=== PATIENT | female | born 1965 | race Caucasian/White ===

== ENCOUNTER 2018-01-20 11:28 | Emergency (ER) | payer SELFPAY ==
--- NOTE | 2018-01-20 12:58 | ER Document Report ---
ED Medical Screen (RME) - General Chief Complaint: Fainting Stated Complaint: NOT TAKING MEDS Time Seen by Provider: 01/20/18 12:40 Notes: Patient is a 52-year-old female that presents to the emergency department for chief complaint of multiple syncopal episodes, diabetic and unable to obtain insulin due to financial situation. ROS: GENERAL: Denies fever or chills CV: Denies chest pain PHYSICAL EXAMINATION: Vital signs reviewed. GENERAL: Well-appearing, well-nourished and in no acute distress. HEAD: Atraumatic, normocephalic. EYES: Pupils equal round extraocular movements intact, conjunctiva are normal. ENT: Nares patent NECK: Normal range of motion CV: Heart regular rate and rhythm LUNGS: No respiratory distress Musculoskeletal: Normal range of motion NEUROLOGICAL: Normal speech PSYCH: Normal mood, normal affect. MDM: Patient seen and examined for rapid initial assessment. Vital signs reviewed. A comprehensive ED assessment and evaluation of the patient, analysis of test results and completion of the medical decision making process will be conducted by additional ED providers. *Note is created using voice recognition software and may contain spelling, syntax or grammatical errors. TRAVEL OUTSIDE OF THE [place] IN LAST 30 DAYS: No - Related Data Allergies/Adverse Reactions: alendronate sodium Allergy (Verified 01/20/18 12:49) Penicillins Allergy (Verified 01/20/18 12:49) pentazocine Allergy (Verified 01/20/18 12:49) risedronate sodium Allergy (Verified 01/20/18 12:49) Past Medical History - Social History Chew tobacco use (# tins/day): No Frequency of alcohol use: None Drug Abuse: None Endocrine Medical History: Reports: Hx Diabetes Mellitus Type 2 - controlled Renal/ Medical History: Denies: Hx Peritoneal Dialysis Malignancy Medical History: Reports: Hx Cervical Cancer Musculoskeltal Medical History: Reports Hx Arthritis Skin Medical History: Reports Hx Cellulitis Psychiatric Medical History: Reports: Hx Dementia Past Surgical History: Reports: Hx Hysterectomy, Hx Orthopedic Surgery - back/ hip plate Physical Exam - Vital signs Vitals: Temp Pulse Resp BP Pulse Ox 98.5 F 108 H 16 129/86 H 100 01/20/18 11:51 01/20/18 11:51 01/20/18 11:51 01/20/18 11:51 01/20/18 11:51 Course - Vital Signs Vital signs: Temp Pulse Resp BP Pulse Ox 98.5 F 108 H 16 129/86 H 100 01/20/18 11:51 01/20/18 11:51 01/20/18 11:51 01/20/18 11:51 01/20/18 11:51
[2018-01-20] MEDS ORDERED: NORMAL SALINE 1000 ML 1,000 ML IV ONE (13:01)
[2018-01-20 14:04] LABS: VENOUS BLOOD BASE EXCESS 2.8 mmol/L; VENOUS BLOOD HCO3 31.8 mmol/L (20-32); VENOUS BLOOD PH 7.28 (7.30-7.42)
[2018-01-20 14:05] LABS: APPEARANCE,URINE SLIGHTLY-CLOUDY; BILIRUBIN,URINE NEGATIVE (NEGATIVE); COLOR,URINE YELLOW; GLUCOSE, URINE 150 mg/dL (NEGATIVE); KETONES,URINE NEGATIVE (NEGATIVE); LEUKOCYTE ESTERASE,URINE NEGATIVE (NEGATIVE); NITRITE,URINE NEGATIVE (NEGATIVE); PROTEIN,URINE NEGATIVE (NEGATIVE); URINE SPECIFIC GRAVITY 1.021
[2018-01-20 14:07] LABS: ABSOLUTE EOSINOPHILS # (AUTO) 0.1 10^3/uL (0.0-0.6); ABSOLUTE LYMPHOCYTES (AUTO) 1.1 10^3/uL (0.5-4.7); ABSOLUTE MONOCYTES (AUTO) 0.3 10^3/uL (0.1-1.4); ABSOLUTE NEUT (AUTO) 2.4 10^3/uL (1.7-8.2); BASOPHILS % (AUTO) 0.7 % (0-2); EOSINOPHILS % (AUTO) 2.5 % (0-6); HEMATOCRIT 44.3 % (36.0-47.0); LYMPHOCYTES % (AUTO) 27.9 % (13-45); MEAN CORPUSCULAR HEMOGLOBIN 28.8 pg (27.0-33.4); MEAN CORPUSCULAR HGB CONC 33.9 g/dL (32.0-36.0); MEAN CORPUSCULAR VOLUME 85 fl (80-97); MONOCYTES % (AUTO) 6.8 % (3-13); PLATELET COUNT 208 10^3/uL (150-450); RED BLOOD COUNT 5.21 10^6/uL (3.72-5.28); RED CELL DISTRIBUTION WIDTH 13.8 % (11.5-14.0); SEGMENTED NEUTROPHILS % (AUTO) 62.1 % (42-78); TOTAL CELLS COUNTED % (AUTO) 100 %; WHITE BLOOD COUNT 3.8 10^3/uL (4.0-10.5)
[2018-01-20 14:24] LABS: ALANINE AMINOTRANSFERASE 23 U/L (9-52); ALBUMIN 4.5 g/dL (3.5-5.0); ALKALINE PHOSPHATASE 137 U/L (38-126); ANION GAP 12 (5-19); ASPARTATE AMINO TRANSFERASE 30 U/L (14-36); BILIRUBIN,DIRECT 0.3 mg/dL (0.0-0.4); BILIRUBIN,TOTAL 0.5 mg/dL (0.2-1.3); BLOOD UREA NITROGEN 18 mg/dL (7-20); CALCIUM 9.5 mg/dL (8.4-10.2); CARBON DIOXIDE 30 mmol/L (22-30); CHLORIDE 101 mmol/L (98-107); CREATINE KINASE 123 U/L (30-135); GLUCOSE 117 mg/dL (75-110); POTASSIUM 3.7 mmol/L (3.6-5.0); SODIUM 143.2 mmol/L (137-145); TOTAL PROTEIN 7.6 g/dL (6.3-8.2)
--- NOTE | 2018-01-20 14:37 | RADIOLOGY REPORT (SQ) ---
EXAM DESCRIPTION: CHEST 2 VIEWS COMPLETED DATE/TIME: 01/20/2018 2:16 pm REASON FOR STUDY: syncope COMPARISON: None. EXAM PARAMETERS: NUMBER OF VIEWS: two views TECHNIQUE: Digital Frontal and Lateral radiographic views of the chest acquired. RADIATION DOSE: NA LIMITATIONS: none FINDINGS: LUNGS AND PLEURA: No opacities, masses or pneumothorax. No pleural effusion. MEDIASTINUM AND HILAR STRUCTURES: No masses or contour abnormalities. HEART AND VASCULAR STRUCTURES: Heart normal size. No evidence for failure. BONES: No acute findings. HARDWARE: None in the chest. OTHER: There is considerable gaseous distention of the stomach in the: . IMPRESSION: NO ACUTE RADIOGRAPHIC FINDING IN THE CHEST. TECHNICAL DOCUMENTATION: JOB ID: [id number] [employer]- All Rights Reserved Reading location - IP/workstation name: [email or web address]
[2018-01-20 14:38] LABS: VENOUS BLOOD PCO2 69.3 mmHg (35-63)
--- NOTE | 2018-01-20 15:52 | RADIOLOGY REPORT (SQ) ---
EXAM DESCRIPTION: CT HEAD WITHOUT COMPLETED DATE/TIME: 01/20/2018 3:38 pm REASON FOR STUDY: fall, head injury COMPARISON: None. TECHNIQUE: Axial images acquired through the brain without intravenous contrast. Images reviewed wi th bone, brain and subdural windows. Additional sagittal and coronal reconstructions were generated. Images stored on PACS. All CT scanners at this facility use dose modulation, iterative reconstruction, and/or weight based d osing when appropriate to reduce radiation dose to as low as reasonably achievable (ALARA). [facility]: Dose Right [facility]: CareDose [facility]: Dose Right [facility]: Teradose 4D [facility]: Smart Shweeb RADIATION DOSE: CT Rad equipment meets quality standard of care and radiation dose reduction techniq ues were employed. CTDIvol: 53.2 mGy. DLP: 1017 mGy-cm. mGy. LIMITATIONS: None. FINDINGS: VENTRICLES: Normal size and contour. CEREBRUM: No masses. No hemorrhage. No midline shift. No evidence for acute infarction. Normal gra y/white matter differentiation. No areas of low density in the white matter. CEREBELLUM: No masses. No hemorrhage. No alteration of density. No evidence for acute infarction. EXTRAAXIAL SPACES: No fluid collections. No masses. ORBITS AND GLOBE: No intra- or extraconal masses. Normal contour of globe without masses. CALVARIUM: No fracture. PARANASAL SINUSES: No fluid or mucosal thickening. SOFT TISSUES: No mass or hematoma. OTHER: No other significant finding. IMPRESSION: NORMAL BRAIN CT WITHOUT CONTRAST. EVIDENCE OF ACUTE STROKE: NO. COMMENT: Quality ID # [id number]: Final reports with documentation of one or more dose reduction techniques (e.g., Automated exposure control, adjustment of the mA and/or kV according to patient size, use of iterative reconstruction technique) TECHNICAL DOCUMENTATION: JOB ID: [id number] [employer]- All Rights Reserved Reading location - IP/workstation name: [email or web address]
--- NOTE | 2018-01-20 15:54 | ER Document Report ---
ED General - General Chief Complaint: Fainting Stated Complaint: NOT TAKING MEDS Time Seen by Provider: 01/20/18 12:40 Notes: 52-year-old female, history of overdose with hypoxic brain injury to the emergency department with family member for evaluation of "passing out and not taking her meds". History of diabetes. History of dementia. Reportedly living in a tent behind [email or web address]. Has been seen by Adult Protective Services. 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 Family member states that they live in a tent together and she takes care of her. They are here wanting to see if she can be "admitted to the hospital to get checked out". patient services clerk has seen patient in the emergency department as well. Some of this information was provided by social media marketing specialist. TRAVEL OUTSIDE OF THE [place] IN LAST 30 DAYS: No - HPI Onset: Yesterday Onset/Duration: Gradual, Intermittent Quality of pain: No pain Severity: Mild Pain Level: 0 Associated symptoms: Weakness, Other - Passing out - Related Data Allergies/Adverse Reactions: alendronate sodium Allergy (Verified 01/20/18 12:49) Penicillins Allergy (Verified 01/20/18 12:49) pentazocine Allergy (Verified 01/20/18 12:49) risedronate sodium Allergy (Verified 01/20/18 12:49) Past Medical History - General Information source: Patient, Relative, [facility] Records - Social History Smoking Status: Never Smoker Chew tobacco use (# tins/day): No Frequency of alcohol use: None Drug Abuse: None Lives with: Homeless Family History: CAD, CVA, DM, Hyperlipidemia, Hypertension, Malignancy Patient has suicidal ideation: No Patient has homicidal ideation: No Endocrine Medical History: Reports: Hx Diabetes Mellitus Type 2 - controlled Renal/ Medical History: Denies: Hx Peritoneal Dialysis Malignancy Medical History: Reports: Hx Cervical Cancer Musculoskeletal Medical History: Reports Hx Arthritis Skin Medical History: Reports Hx Cellulitis Psychiatric Medical History: Reports: Hx Dementia Past Surgical History: Reports: Hx Hysterectomy, Hx Orthopedic Surgery - back/ hip plate Review of Systems - Review of Systems Notes: Constitutional: denies: Chills, Diaphoresis, Fever, Malaise, Weakness EENT: denies: Eye discharge, Blurred vision, Tearing, Double vision, Nose congestion, Nose discharge, Throat swelling, Mouth pain Cardiovascular: denies: Palpitations, Heart racing, Orthopnea, Dyspnea, Chest pain Respiratory: denies: Cough, Hurts to breathe, Wheezing, Shortness of breath Gastrointestinal: denies: Abdominal pain, Diarrhea, Nausea, Vomiting, Black stools, bright red blood in stool Genitourinary: denies: Burning, Dysuria, Discharge, Frequency, Flank pain, Hematuria Musculoskeletal: denies: Joint pain, Joint swelling, Muscle pain, Muscle stiffness, back pain Hematologic/Lymphatic: denies: Anemia, Easy bleeding, Easy bruising, Blood clots Neurological/Psychological: denies: Confusion, Dementia, Depression, Loss of consciousness Skin: No lesions, no masses, no skin breakdown, no abscesses Physical Exam - Vital signs Vitals: Temp Pulse Resp BP Pulse Ox 98.5 F 108 H 16 129/86 H 100 01/20/18 11:51 01/20/18 11:51 01/20/18 11:51 01/20/18 11:51 01/20/18 11:51 Interpretation: Normal - General General appearance: Appears well, Alert - HEENT Head: Normocephalic, Atraumatic, Other - Small scratch on the left eyebrow area. Eyes: Normal Pupils: PERRL - Respiratory Respiratory status: No respiratory distress Chest status: Nontender Breath sounds: Normal Chest palpation: Normal - Cardiovascular Rhythm: Regular Heart sounds: Normal auscultation Murmur: No - Abdominal Inspection: Normal Distension: No distension Bowel sounds: Normal Tenderness: Nontender Organomegaly: No organomegaly - Back Back: Normal, Nontender - Extremities General upper extremity: Normal inspection, Nontender, Normal color, Normal ROM , Normal temperature General lower extremity: Normal inspection, Nontender, Normal color, Normal ROM , Normal temperature, Normal weight bearing. No: Geovany's sign - Neurological Neuro grossly intact: Yes Cognition: Confused [place] Coma Scale Eye Opening: Spontaneous [place] Coma Scale Motor: Obeys Commands Speech: Normal Motor strength normal: LUE, RUE, LLE, RLE Sensory: Normal - Psychological Associated symptoms: Normal affect, Normal mood - Skin Skin Temperature: Warm Skin Moisture: Dry Skin Color: Normal, Other - Abrasion on left eyebrow, abrasion on right mercedes Course - Re-evaluation Re-evalutation: 01/20/18 16:18 At this time we will do basic workup on her. Find nothing significant on physical exam. There is some obvious social issues involved. Apparently Adult Protective Services is aware of this patient. We will continue to follow recommendations of mental health as well 01/20/18 17:47 Laboratory 01/20/18 01/20/18 01/20/18 13:25 13:31 13:31 WBC 3.8 L RBC 5.21 Hgb 15.0 Hct 44.3 MCV 85 MCH 28.8 MCHC 33.9 RDW 13.8 Plt Count 208 Seg Neutrophils % 62.1 Lymphocytes % 27.9 Monocytes % 6.8 Eosinophils % 2.5 Basophils % 0.7 Absolute Neutrophils 2.4 Absolute Lymphocytes 1.1 Absolute Monocytes 0.3 Absolute Eosinophils 0.1 Absolute Basophils 0.0 Carbonic Acid HCO3/H2CO3 Ratio ABG pH ABG pCO2 ABG pO2 ABG HCO3 ABG Total CO2 ABG O2 Saturation ABG Base Excess VBG pH VBG pCO2 VBG HCO3 VBG Base Excess FiO2 Sodium 143.2 Potassium 3.7 Chloride 101 Carbon Dioxide 30 Anion Gap 12 BUN 18 Creatinine 0.70 Est GFR ( Amer) > 60 Est GFR (Non-Af Amer) > 60 Glucose 117 H Calcium 9.5 Total Bilirubin 0.5 Direct Bilirubin 0.3 Neonat Total Bilirubin Not Reportable Neonat Direct Bilirubin Not Reportable Neonat Indirect Bili Not Reportable AST 30 ALT 23 Alkaline Phosphatase 137 H Creatine Kinase 123 Troponin I Total Protein 7.6 Albumin 4.5 Urine Color YELLOW Urine Appearance SLIGHTLY-CLOUDY Urine pH 5.0 Ur Specific [place] 1.021 Urine Protein NEGATIVE Urine Glucose (UA) 150 H Urine Ketones NEGATIVE Urine Blood NEGATIVE Urine Nitrite NEGATIVE Urine Bilirubin NEGATIVE Urine Urobilinogen 4.0 H Ur Leukocyte Esterase NEGATIVE Urine WBC (Auto) 3 Urine RBC (Auto) 1 Squamous Epi Cells Auto 3 Urine Mucus (Auto) OCC Urine Ascorbic Acid NEGATIVE Urine Opiates Screen Urine Methadone Screen Ur Barbiturates Screen Ur Phencyclidine Scrn Ur Amphetamines Screen U Benzodiazepines Scrn Urine Cocaine Screen U Marijuana (THC) Screen 01/20/18 01/20/18 01/20/18 13:31 13:31 13:55 WBC RBC Hgb Hct MCV MCH MCHC RDW Plt Count Seg Neutrophils % Lymphocytes % Monocytes % Eosinophils % Basophils % Absolute Neutrophils Absolute Lymphocytes Absolute Monocytes Absolute Eosinophils Absolute Basophils Carbonic Acid HCO3/H2CO3 Ratio ABG pH ABG pCO2 ABG pO2 ABG HCO3 ABG Total CO2 ABG O2 Saturation ABG Base Excess VBG pH 7.28 L VBG pCO2 69.3 H* VBG HCO3 31.8 VBG Base Excess 2.8 FiO2 Sodium Potassium Chloride Carbon Dioxide Anion Gap BUN Creatinine Est GFR ( Amer) Est GFR (Non-Af Amer) Glucose Calcium Total Bilirubin Direct Bilirubin Neonat Total Bilirubin Neonat Direct Bilirubin Neonat Indirect Bili AST ALT Alkaline Phosphatase Creatine Kinase Troponin I < 0.012 Total Protein Albumin Urine Color Urine Appearance Urine pH Ur Specific [place] Urine Protein Urine Glucose (UA) Urine Ketones Urine Blood Urine Nitrite Urine Bilirubin Urine Urobilinogen Ur Leukocyte Esterase Urine WBC (Auto) Urine RBC (Auto) Squamous Epi Cells Auto Urine Mucus (Auto) Urine Ascorbic Acid Urine Opiates Screen NEGATIVE Urine Methadone Screen NEGATIVE Ur Barbiturates Screen NEGATIVE Ur Phencyclidine Scrn NEGATIVE Ur Amphetamines Screen NEGATIVE U Benzodiazepines Scrn NEGATIVE Urine Cocaine Screen NEGATIVE U Marijuana (THC) Screen NEGATIVE 01/20/18 15:28 WBC RBC Hgb Hct MCV MCH MCHC RDW Plt Count Seg Neutrophils % Lymphocytes % Monocytes % Eosinophils % Basophils % Absolute Neutrophils Absolute Lymphocytes Absolute Monocytes Absolute Eosinophils Absolute Basophils Carbonic Acid 1.32 HCO3/H2CO3 Ratio 20:1 ABG pH 7.40 ABG pCO2 43.7 ABG pO2 74.8 L ABG HCO3 26.4 H ABG Total CO2 27.7 H ABG O2 Saturation 95.0 ABG Base Excess 1.3 VBG pH VBG pCO2 VBG HCO3 VBG Base Excess FiO2 ROOMAIR Sodium Potassium Chloride Carbon Dioxide Anion Gap BUN Creatinine Est GFR ( Amer) Est GFR (Non-Af Amer) Glucose Calcium Total Bilirubin Direct Bilirubin Neonat Total Bilirubin Neonat Direct Bilirubin Neonat Indirect Bili AST ALT Alkaline Phosphatase Creatine Kinase Troponin I Total Protein Albumin Urine Color Urine Appearance Urine pH Ur Specific [place] Urine Protein Urine Glucose (UA) Urine Ketones Urine Blood Urine Nitrite Urine Bilirubin Urine Urobilinogen Ur Leukocyte Esterase Urine WBC (Auto) Urine RBC (Auto) Squamous Epi Cells Auto Urine Mucus (Auto) Urine Ascorbic Acid Urine Opiates Screen Urine Methadone Screen Ur Barbiturates Screen Ur Phencyclidine Scrn Ur Amphetamines Screen U Benzodiazepines Scrn Urine Cocaine Screen U Marijuana (THC) Screen Chest X-Ray 01/20/18 12:59 IMPRESSION: NO ACUTE RADIOGRAPHIC FINDING IN THE CHEST. Head CT 01/20/18 15:29 IMPRESSION: NORMAL BRAIN CT WITHOUT CONTRAST. EVIDENCE OF ACUTE STROKE: NO. Labs are normal, imaging studies unremarkable. At this time find no convincing evidence we need to admit the patient. Will discharge at this time in stable condition. - Vital Signs Vital signs: Temp Pulse Resp BP Pulse Ox 98.5 F 108 H 16 129/86 H 100 01/20/18 11:51 01/20/18 11:51 01/20/18 11:51 01/20/18 11:51 01/20/18 11:51 - Laboratory Result Diagrams: 01/20/18 13:31 01/20/18 13:31 Laboratory results interpreted by me: 01/20/18 01/20/18 01/20/18 13:25 13:31 13:31 WBC 3.8 L ABG pO2 ABG HCO3 ABG Total CO2 VBG pH VBG pCO2 Glucose 117 H Alkaline Phosphatase 137 H Urine Glucose (UA) 150 H Urine Urobilinogen 4.0 H 01/20/18 01/20/18 13:31 15:28 WBC ABG pO2 74.8 L ABG HCO3 26.4 H ABG Total CO2 27.7 H VBG pH 7.28 L VBG pCO2 69.3 H* Glucose Alkaline Phosphatase Urine Glucose (UA) Urine Urobilinogen - EKG Interpretation by [place] EKG shows normal: Sinus rhythm, [place], Intervals, QRS Complexes, ST-T Waves Discharge - Discharge Clinical Impression: Homeless single person, Well adult exam Condition: Good Disposition: HOME, SELF-CARE Instructions: Diabetes ([facility]), Normal Exam and Workup ([facility]) Referrals: [facility] [Provider Group] - 01/21/18 8:00 am
[2018-01-20 16:41] LABS: ARTERIAL BLOOD BASE EXCESS 1.3 mmol/L; ARTERIAL BLOOD H2CO3 1.32 mmol/L (1.05-1.35); ARTERIAL BLOOD HCO3 26.4 mmol/L (20-24); ARTERIAL BLOOD PCO2 43.7 mmHg (35-45); ARTERIAL BLOOD PO2 74.8 mmHg (80-100); ARTERIAL BLOOD TOTAL CO2 27.7 mmol/L (21-25)
[2018-01-20 16:42] LABS: ARTERIAL BLOOD FIO2 ROOMAIR
[2018-01-20 16:57] LABS: URINE AMPHETAMINES SCREEN NEGATIVE; URINE BARBITURATES SCREEN NEGATIVE; URINE BENZODIAZEPINES SCREEN NEGATIVE; URINE COCAINE SCREEN NEGATIVE; URINE MARIJUANA (THC) SCREEN NEGATIVE; URINE METHADONE SCREEN NEGATIVE; URINE PHENCYCLIDINE SCREEN NEGATIVE
[2018-01-20 18:20] VITALS: BP 158/86
--- NOTE | 2018-01-20 19:26 | EKG REPORT ---
SEVERITY:- BORDERLINE ECG - SINUS RHYTHM BORDERLINE T ABNORMALITIES, INFERIOR LEADS : Confirmed by: Austin Gonzalez MD 20-Jan-2018 19:24:36
== END 2018-01-20 18:22 | disposition home or self-care (01) ==
LOC: ER 11:28
DX: Z71.1 Person with feared health complaint in whom no diagnosis is made (principal); Z59.0 Homelessness; E11.9 Type 2 diabetes mellitus without complications; F03.90 Unspecified dementia, unspecified severity, without behavioral disturbance, psychotic disturbance, mood disturbance, and anxiety
CPT/HCPCS: 93005; 99285; 96360; 36415; 82803 ×2; 82550; 85025; 80053; 81001; 84484; 80307; 71046; 70450; 93010; J7030

== ENCOUNTER 2018-02-10 12:05 | Inpatient (IN) | payer MEDICARE ==
[2018-02-10] MEDS ORDERED: NORMAL SALINE 1000 ML 1,000 ML IV ONE (12:20)
[2018-02-10] MEDS ORDERED: KETOROLAC TROMETHAMINE INJ/PF 30 MG/1 ML SDV IV ONE (12:24)
--- NOTE | 2018-02-10 12:24 | ER Document Report ---
ED General - General Stated Complaint: BLOOD IN URINE Time Seen by Provider: 02/10/18 12:12 TRAVEL OUTSIDE OF THE [place] IN LAST 30 DAYS: No - HPI Notes: Patient is a 52-year-old female that presents to the emergency department for chief complaint of blood in urine and syncope. She presents by EMS from a [facility]. History is limited because of her history of traumatic brain injury. Shoulder caregiver states she is at her baseline mental status. Patient told them today that she has had blood in her urine that has been increasing for the last week. She also complains of left flank pain that has been constant for the last week as well. She is not sure if she has ever had a kidney stone before. She states 1 week ago she was standing and walking and had a syncopal episode. She denied any injury and has felt fine since. She denied ever seeing anybody for evaluation after the syncopal episode and has not told any caregivers. Currently she has no complaints and states she feels normal. Past Medical History: Medic brain injury, diabetes Past Surgical History: Hysterectomy Social History: Denies drugs alcohol and tobacco Family History: Reviewed and noncontributory for presenting illness Allergies: Reviewed, see documented allergy list. REVIEW OF SYSTEMS: CONSTITUTIONAL : No fever No chills No diaphoresis No recent illness EENT: No vision changes No congestion No sore throat CARDIOVASCULAR: No chest pain No palpitations Syncope RESPIRATORY: No shortness of breath No cough No difficulty breathing GASTROINTESTINAL: No abdominal pain No nausea No vomiting No diarrhea GENITOURINARY: No dysuria No hematuria No difficulty urinating Hematuria MUSCULOSKELETAL: Left flank pain No leg pain No arm pain SKIN: No rashes No lesions LYMPHATIC: No swollen, enlarged glands. NEUROLOGICAL: No lightheadedness No headache No weakness No paresthesias PSYCHIATRIC: No anxiety No depression PHYSICAL EXAMINATION: Vital signs reviewed, nursing noted reviewed. GENERAL: Well-appearing, well-nourished and in no acute distress. HEAD: Atraumatic, normocephalic. EYES: Eyes appear normal, extraocular movements intact, sclera anicteric, conjunctiva are normal. ENT: nares patent, oropharynx clear without exudates. Moist mucous membranes. NECK: Normal range of motion, supple without lymphadenopathy LUNGS: Breath sounds clear to auscultation bilaterally and equal. No wheezes rales or rhonchi. HEART: Tachycardic and rhythm without murmurs ABDOMEN: Soft, nontender, normoactive bowel sounds. No rebound, guarding, or rigidity. No masses appreciated. Left CVA tenderness EXTREMITIES: Nontender, good range of motion, no pitting or edema. NEUROLOGICAL: No focal neurological deficits. Moves all extremities spontaneously Motor and sensory grossly intact on exam. PSYCH: Normal mood, normal affect. SKIN: Warm, Dry, normal turgor, no rashes or lesions noted on exposed skin - Related Data Allergies/Adverse Reactions: alendronate sodium Allergy (Verified 01/20/18 12:49) Penicillins Allergy (Verified 01/20/18 12:49) pentazocine Allergy (Verified 01/20/18 12:49) risedronate sodium Allergy (Verified 01/20/18 12:49) Past Medical History - Social History Smoking Status: Never Smoker Family History: CAD, CVA, DM, Hyperlipidemia, Hypertension, Malignancy Endocrine Medical History: Reports: Hx Diabetes Mellitus Type 2 - controlled Renal/ Medical History: Denies: Hx Peritoneal Dialysis Malignancy Medical History: Reports: Hx Cervical Cancer Musculoskeletal Medical History: Reports Hx Arthritis Skin Medical History: Reports Hx Cellulitis Psychiatric Medical History: Reports: Hx Dementia Past Surgical History: Reports: Hx Hysterectomy, Hx Orthopedic Surgery - back/ hip plate Review of Systems - Review of Systems Notes: Dictated Physical Exam - Vital signs Vitals: Resp Pulse Ox 15 98 02/10/18 12:39 02/10/18 12:39 - Notes Notes: Dictated Course - Re-evaluation Re-evalutation: 02/10/18 14:39 Vitals reviewed. Patient was tachycardic at presentation and given IV hydration. She was complaining of hematuria however there is no blood or infection on urinalysis. CT scan of the abdomen was obtained to evaluate for possible ureterolithiasis because of her left flank pain. There is no acute kidney stone however CT showed possible small bowel obstruction versus ileus. Contrasted CT study was ordered to further evaluate for small bowel obstruction versus ileus. Repeat abdominal exam is still soft and nontender with no peritoneal signs. Patient is not vomiting or complaining of abdominal pain currently. Lab work shows an elevated lactic acid likely secondary to her hyperglycemia and dehydration. She has no leukocytosis. UA is negative for infection and chest x-ray shows no pneumonia. I do not suspect sepsis and she has no current source of infection. Patient was aggressively hydrated with improvement of her heart rate. Because of her history of traumatic brain injury it is difficult to obtain sufficient history. She will be admitted to the hospital for continued hydration and monitoring of her elevated lactate. Case discussed with admitting physician Dr. Zamudio. Patient stable at time of admission. Laboratory 02/10/18 02/10/18 02/10/18 12:20 12:20 12:20 WBC 6.3 RBC 4.13 Hgb 12.2 Hct 35.0 L MCV 85 MCH 29.6 MCHC 35.0 RDW 14.1 H Plt Count 188 Seg Neutrophils % 63.5 Lymphocytes % 22.2 Monocytes % 11.0 Eosinophils % 2.5 Basophils % 0.8 Absolute Neutrophils 4.0 Absolute Lymphocytes 1.4 Absolute Monocytes 0.7 Absolute Eosinophils 0.2 Absolute Basophils 0.0 VBG pH VBG pCO2 VBG HCO3 VBG Base Excess Sodium 138.0 Potassium 4.1 Chloride 101 Carbon Dioxide 29 Anion Gap 8 BUN 14 Creatinine 0.76 Est GFR ( Amer) > 60 Est GFR (Non-Af Amer) > 60 Glucose 238 H Lactic Acid Calcium 9.2 Troponin I < 0.012 Urine Color Urine Appearance Urine pH Ur Specific [place] Urine Protein Urine Glucose (UA) Urine Ketones Urine Blood Urine Nitrite Urine Bilirubin Urine Urobilinogen Ur Leukocyte Esterase Urine RBC (Auto) Squamous Epi Cells Auto Urine Mucus (Auto) Urine Ascorbic Acid 02/10/18 02/10/18 02/10/18 12:20 12:20 12:30 WBC RBC Hgb Hct MCV MCH MCHC RDW Plt Count Seg Neutrophils % Lymphocytes % Monocytes % Eosinophils % Basophils % Absolute Neutrophils Absolute Lymphocytes Absolute Monocytes Absolute Eosinophils Absolute Basophils VBG pH 7.38 VBG pCO2 40.7 VBG HCO3 23.4 VBG Base Excess -1.6 Sodium Potassium Chloride Carbon Dioxide Anion Gap BUN Creatinine Est GFR ( Amer) Est GFR (Non-Af Amer) Glucose Lactic Acid 3.0 H Calcium Troponin I Urine Color STRAW Urine Appearance CLEAR Urine pH 6.0 Ur Specific [place] 1.000 Urine Protein NEGATIVE Urine Glucose (UA) >=500 H Urine Ketones NEGATIVE Urine Blood NEGATIVE Urine Nitrite NEGATIVE Urine Bilirubin NEGATIVE Urine Urobilinogen NEGATIVE Ur Leukocyte Esterase NEGATIVE Urine RBC (Auto) 0 Squamous Epi Cells Auto <1 Urine Mucus (Auto) RARE Urine Ascorbic Acid NEGATIVE Chest X-Ray 02/10/18 12:18 IMPRESSION: NO ACUTE RADIOGRAPHIC FINDING IN THE CHEST. Abdomen/Pelvis CT 02/10/18 12:23 IMPRESSION: Gastric distention. Ileus or partial small bowel obstruction. - Vital Signs Vital signs: Temp Pulse Resp BP Pulse Ox 15 98 02/10/18 12:39 02/10/18 12:39 - Laboratory Result Diagrams: 02/10/18 12:20 02/10/18 12:20 Laboratory results interpreted by me: 02/10/18 02/10/18 02/10/18 12:20 12:20 12:20 Hct 35.0 L RDW 14.1 H Glucose 238 H Lactic Acid 3.0 H Urine Glucose (UA) 02/10/18 12:30 Hct RDW Glucose Lactic Acid Urine Glucose (UA) >=500 H - EKG Interpretation by Me Additional EKG results interpreted by me: 02/10/18 12:46 1243: Sinus tachycardia, normal axis, rate 104, no ectopy, no ST elevation, hyperacute T waves V2 V3 with no other significant change compared to 01/20/18 Discharge - Discharge Clinical Impression: Left flank pain, Hyperglycemia, Elevated lactic acid level, Dehydration, Ileus Condition: Stable Disposition: ADMITTED OBSERVATION Admitting Provider: Hospitalist Unit Admitted: Medical Floor
[2018-02-10 12:40] LABS: ABSOLUTE EOSINOPHILS # (AUTO) 0.2 10^3/uL (0.0-0.6); ABSOLUTE LYMPHOCYTES (AUTO) 1.4 10^3/uL (0.5-4.7); ABSOLUTE MONOCYTES (AUTO) 0.7 10^3/uL (0.1-1.4); BASOPHILS % (AUTO) 0.8 % (0-2); EOSINOPHILS % (AUTO) 2.5 % (0-6); HEMOGLOBIN 12.2 g/dL (12.0-15.5); LYMPHOCYTES % (AUTO) 22.2 % (13-45); MEAN CORPUSCULAR HEMOGLOBIN 29.6 pg (27.0-33.4); MEAN CORPUSCULAR VOLUME 85 fl (80-97); PLATELET COUNT 188 10^3/uL (150-450); RED BLOOD COUNT 4.13 10^6/uL (3.72-5.28); RED CELL DISTRIBUTION WIDTH 14.1 % (11.5-14.0); SEGMENTED NEUTROPHILS % (AUTO) 63.5 % (42-78); TOTAL CELLS COUNTED % (AUTO) 100 %; WHITE BLOOD COUNT 6.3 10^3/uL (4.0-10.5)
[2018-02-10 12:41] LABS: VENOUS BLOOD BASE EXCESS -1.6 mmol/L; VENOUS BLOOD HCO3 23.4 mmol/L (20-32); VENOUS BLOOD PCO2 40.7 mmHg (35-63); VENOUS BLOOD PH 7.38 (7.30-7.42)
[2018-02-10 12:57] LABS: ANION GAP 8 (5-19); BLOOD UREA NITROGEN 14 mg/dL (7-20); CALCIUM 9.2 mg/dL (8.4-10.2); CARBON DIOXIDE 29 mmol/L (22-30); CHLORIDE 101 mmol/L (98-107); GLUCOSE 238 mg/dL (75-110); POTASSIUM 4.1 mmol/L (3.6-5.0)
[2018-02-10] MEDS ORDERED: NORMAL SALINE 1000 ML 1,000 ML IV PRN (12:57)
[2018-02-10 13:03] LABS: APPEARANCE,URINE CLEAR; BILIRUBIN,URINE NEGATIVE (NEGATIVE); COLOR,URINE STRAW; GLUCOSE, URINE >=500 mg/dL (NEGATIVE); KETONES,URINE NEGATIVE (NEGATIVE); LEUKOCYTE ESTERASE,URINE NEGATIVE (NEGATIVE); NITRITE,URINE NEGATIVE (NEGATIVE); PROTEIN,URINE NEGATIVE (NEGATIVE); UROBILINOGEN,URINE NEGATIVE mg/dL (<2.0)
--- NOTE | 2018-02-10 13:13 | RADIOLOGY REPORT (SQ) ---
EXAM DESCRIPTION: CT ABD/PELVIS NO ORAL OR IV COMPLETED DATE/TIME: 02/10/2018 1:02 pm REASON FOR STUDY: Left flank pain COMPARISON: None. TECHNIQUE: CT scan of the abdomen and pelvis performed without intravenous or oral contrast. Images reviewed with lung, soft tissue, and bone windows. Reconstructed coronal and sagittal MPR images revi ewed. All images stored on PACS. All CT scanners at this facility use dose modulation, iterative reconstruction, and/or weight based d osing when appropriate to reduce radiation dose to as low as reasonably achievable (ALARA). [facility]: Dose Right [facility]: CareDose [facility]: Dose Right [facility]: Teradose 4D [facility]: Promodity RADIATION DOSE: mGy. LIMITATIONS: Orthopedic hardware in the left hip. FINDINGS: LOWER CHEST: No significant findings. No nodules or infiltrates. NON-CONTRASTED LIVER, SPLEEN, ADRENALS: Evaluation limited by lack of IV contrast. No identified sign ificant masses. PANCREAS: No masses. No peripancreatic inflammatory changes. GALLBLADDER: Surgically absent. RIGHT KIDNEY AND URETER: No suspicious masses. Assessment limited by lack of IV contrast. No signif icant calcifications. No hydronephrosis or hydroureter. LEFT KIDNEY AND URETER: No suspicious masses. Assessment limited by lack of IV contrast. No signifi cant calcifications. No hydronephrosis or hydroureter. AORTA AND RETROPERITONEUM: No aneurysm. No retroperitoneal masses or adenopathy. BOWEL AND PERITONEAL CAVITY: Moderate gastric distention. Gas fluid levels in mildly dilated loops o f small bowel without clear transition point. Gas and fecal material in nondilated colon. No ascite s or free air. APPENDIX: Not visualized. PELVIS, BLADDER, AND ABDOMINAL WALL:No abnormal masses. No free fluid. Bladder normal. BONES: Osteopenia. No acute findings. OTHER: No other significant finding. IMPRESSION: Gastric distention. Ileus or partial small bowel obstruction. COMMENT: Quality ID # [id number]: Final reports with documentation of one or more dose reduction techniques (e.g., Automated exposure control, adjustment of the mA and/or kV according to patient size, use of iterative reconstruction technique) TECHNICAL DOCUMENTATION: JOB ID: [id number] [employer]- All Rights Reserved Reading location - IP/workstation name: [email or web address]
--- NOTE | 2018-02-10 13:28 | RADIOLOGY REPORT (SQ) ---
EXAM DESCRIPTION: CHEST SINGLE VIEW COMPLETED DATE/TIME: 02/10/2018 1:10 pm REASON FOR STUDY: cough COMPARISON: 01/20/2018 EXAM PARAMETERS: NUMBER OF VIEWS: One view. TECHNIQUE: Single frontal radiographic view of the chest acquired. RADIATION DOSE: NA LIMITATIONS: None. FINDINGS: LUNGS AND PLEURA: No opacities, masses or pneumothorax. No pleural effusion. MEDIASTINUM AND HILAR STRUCTURES: No masses. Contour normal. HEART AND VASCULAR STRUCTURES: Heart normal in size. Normal vasculature. BONES: No acute findings. HARDWARE: None in the chest. OTHER: No other significant finding. IMPRESSION: NO ACUTE RADIOGRAPHIC FINDING IN THE CHEST. TECHNICAL DOCUMENTATION: JOB ID: [id number] [employer]- All Rights Reserved Reading location - IP/workstation name: [email or web address]
[2018-02-10] MEDS ORDERED: DEXTROSE 50%-WATER 25 GM/50 ML DISP.SYRIN IV PRN ×2 (16:05)
[2018-02-10] MEDS ORDERED: ONDANSETRON HCL INJ/PF 4 MG/2 ML SDV IV PRN (16:05)
[2018-02-10] MEDS ORDERED: DEXTROSE 40% GEL 15 GM TUBE PO PRN ×2 (16:05)
[2018-02-10] MEDS ORDERED: IPRATROPIUM/ALBUTEROL 0.5-2.5 MG/3 ML AMPUL NEB PRN (16:05)
[2018-02-10] MEDS ORDERED: GLUCAGON,HUMAN RECOMB 1 MG INJ IM PRN (16:05)
[2018-02-10] MEDS ORDERED: OXYCODONE-ACETAMINOPHEN 5-325 MG TABLET PO PRN (16:05)
--- NOTE | 2018-02-10 17:02 | EKG REPORT ---
SEVERITY:- OTHERWISE NORMAL ECG - SINUS TACHYCARDIA : Confirmed by: Maria Eugenia Bloom MD 10-Feb-2018 17:01:19
--- NOTE | 2018-02-10 17:12 | RADIOLOGY REPORT (SQ) ---
EXAM DESCRIPTION: CT ABD/PELVIS WITH IV ORAL COMPLETED DATE/TIME: 02/10/2018 4:39 pm REASON FOR STUDY: bowel obstruction COMPARISON: CT abdomen and pelvis without contrast. 02/10/2018. TECHNIQUE: CT scan of the abdomen and pelvis performed using helical scanning technique with dynamic intravenous contrast injection. Oral contrast given. Images reviewed with lung, soft tissue, and b one windows. Reconstructed coronal and sagittal MPR images reviewed. Delayed images for evaluation of the urinary system also acquired. All images stored on PACS. All CT scanners at this facility use dose modulation, iterative reconstruction, and/or weight based d osing when appropriate to reduce radiation dose to as low as reasonably achievable (ALARA). [facility]: Dose Right [facility]: CareDose [facility]: Dose Right [facility]: Teradose 4D [facility]: Manymoon CONTRAST TYPE AND DOSE: contrast/concentration: Isovue 350.00 mg/ml; Total Contrast Delivered: 81.0 ml; Total Saline Delivered: 46.0 ml RENAL FUNCTION: Creatinine: 0.8. RADIATION DOSE: CT Rad equipment meets quality standard of care and radiation dose reduction techniq ues were employed. CTDIvol: 5.6 - 7.6 mGy. DLP: 742 mGy-cm.. LIMITATIONS: None. FINDINGS: LOWER CHEST: No abnormality. LIVER: Normal. SPLEEN: Normal. . PANCREAS: No masses. No significant calcifications. No adjacent inflammation or peripancreatic fluid collections. Pancreatic duct not dilated. GALLBLADDER: Status post cholecystectomy. Post cholecystectomy prominence of intrahepatic biliary du cts and common bile duct. ADRENAL GLANDS: No significant masses or asymmetry. RIGHT KIDNEY AND URETER: Cortical cyst lower pole right kidney. Cortical cyst upper pole right kidne y. . No hydronephrosis or hydroureter. LEFT KIDNEY ANd URETER: Cortical cyst noted. AORTA AND VESSELS: No aneurysm. No dissection. Renal arteries, SMA, celiac without stenosis. RETROPERITONEUM: No retroperitoneal adenopathy, hemorrhage or masses. BOWEL AND PERITONEAL CAVITY: Interval decrease of gastric distention. Postsurgical changes of GE ashkan ction which could represent changes of fundal plication. Gaseous distention of the right and transve rse colon. Contrast noted passing from distal small bowel into the cecum. Mildly prominent loops of small bowel without transition point. The findings could represent generalileus pattern APPENDIX: Normal. PELVIS: Uterus: Absent. Urinary bladder: No abnormality. ABDOMINAL WALL: No masses. No hernias. BONES: Lumbar spondylosis. Compression of L2. Compression of T11 and T12. Fusion of T7 and T8. OTHER: Surgical clips right hemipelvis. IMPRESSION: Mild dilatation of colon and small bowel which could represent a generalized ileus patte rn. Interval resolution of gastric distention noted prior study 02/10/2018. TECHNICAL DOCUMENTATION: JOB ID: [id number] Quality ID # [id number]: Final reports with documentation of one or more dose reduction techniques (e.g., Au tomated exposure control, adjustment of the mA and/or kV according to patient size, use of iterative reconstruction technique) 2010 [employer]- All Rights Reserved Reading location - IP/workstation name: [email or web address]
--- NOTE | 2018-02-10 19:13 | PDOC H&P ---
History of Present Illness Admission Date/PCP: 02/10/18 16:03 Patient complains of: Patient presents to emergency room with complaints of bloody urine and syncope History of Present Illness: DENICE TELLO is a 52 year old female Patient presents to emergency room with complaints of bloody urine and syncope. Please note history is obtained from the chart as patient is unable to provide any history. Patient apparently presents by EMS from a correction. Patient was evaluated in the ER and found to have a slightly elevated lactic acid level but repeat was actually normal after some hydration. A CT scan was done for unclear reason and this appears to show an ileus which is really the main reason why patient is been admitted at this time. To me she denies any abdominal pain nausea or vomiting but also because of a traumatic brain injury patient is really unable to provide any concise details. Past Medical History Endocrine Medical History: Reports: Diabetes Mellitus Type 2 - controlled Malignancy Medical History: Reports: Cervical Cancer Musculoskeltal Medical History: Reports: Arthritis Psychiatric Medical History: Reports: Dementia Past Surgical History Past Surgical History: Reports: Hysterectomy, Orthopedic Surgery - back/hip plate Social History Smoking Status: Never Smoker - Advance Directive Resuscitation Status: Full Code - Presumed Family History Family History: CAD, CVA, DM, Hyperlipidemia, Hypertension, Malignancy Parental Family History Reviewed: No - Unavailable Children Family History Reviewed: Unknown Sibling(s) Family History Reviewed.: Unknown Medication/Allergy Home Medications: No Home Medications 11/23/15 Allergies/Adverse Reactions: alendronate sodium Allergy (Verified 01/20/18 12:49) Penicillins Allergy (Verified 01/20/18 12:49) pentazocine Allergy (Verified 01/20/18 12:49) risedronate sodium Allergy (Verified 01/20/18 12:49) Review of Systems ROS unobtainable: Due to mental status Physical Exam Vital Signs: Temp Pulse Resp BP Pulse Ox 15 98 02/10/18 12:39 02/10/18 12:39 General appearance: PRESENT: no acute distress Head exam: PRESENT: atraumatic, normocephalic Eye exam: PRESENT: conjunctiva pink, EOMI, PERRLA. ABSENT: scleral icterus Ear exam: PRESENT: normal external ear exam Mouth exam: PRESENT: moist, tongue midline Neck exam: ABSENT: carotid bruit, JVD, lymphadenopathy, thyromegaly Respiratory exam: PRESENT: clear to auscultation jamee. ABSENT: rales, rhonchi, wheezes Cardiovascular exam: PRESENT: RRR. ABSENT: diastolic murmur, rubs, systolic murmur Pulses: PRESENT: normal dorsalis pedis pul Vascular exam: PRESENT: normal capillary refill GI/Abdominal exam: PRESENT: normal bowel sounds, soft. ABSENT: distended, guarding, mass, organolmegaly, rebound, tenderness Rectal exam: PRESENT: deferred Extremities exam: PRESENT: full ROM. ABSENT: calf tenderness, clubbing, pedal edema Neurological exam: PRESENT: alert, awake. ABSENT: motor sensory deficit Psychiatric exam: PRESENT: flat affect, normal mood. ABSENT: homicidal ideation , suicidal ideation Skin exam: PRESENT: dry, intact, warm. ABSENT: cyanosis, rash Results Laboratory Results: 02/10/18 12:20 02/10/18 12:20 MCV 85 fl (80-97) 02/10/18 12:20 MCH 29.6 pg (27.0-33.4) 02/10/18 12:20 MCHC 35.0 g/dL (32.0-36.0) 02/10/18 12:20 RDW 14.1 % (11.5-14.0) H 02/10/18 12:20 Seg Neutrophils % 63.5 % (42-78) 02/10/18 12:20 Lymphocytes % 22.2 % (13-45) 02/10/18 12:20 Monocytes % 11.0 % (3-13) 02/10/18 12:20 Eosinophils % 2.5 % (0-6) 02/10/18 12:20 Basophils % 0.8 % (0-2) 02/10/18 12:20 Absolute Neutrophils 4.0 10^3/uL (1.7-8.2) 02/10/18 12:20 Absolute Lymphocytes 1.4 10^3/uL (0.5-4.7) 02/10/18 12:20 Absolute Monocytes 0.7 10^3/uL (0.1-1.4) 02/10/18 12:20 Absolute Eosinophils 0.2 10^3/uL (0.0-0.6) 02/10/18 12:20 Absolute Basophils 0.0 10^3/uL (0.0-0.2) 02/10/18 12:20 VBG pH 7.38 (7.30-7.42) 02/10/18 12:20 VBG pCO2 40.7 mmHg (35-63) 02/10/18 12:20 VBG HCO3 23.4 mmol/L (20-32) 02/10/18 12:20 VBG Base Excess -1.6 mmol/L 02/10/18 12:20 Chloride 101 mmol/L (98-107) 02/10/18 12:20 Carbon Dioxide 29 mmol/L (22-30) 02/10/18 12:20 Anion Gap 8 (5-19) 02/10/18 12:20 Est GFR ( Amer) > 60 (>60) 02/10/18 12:20 Est GFR (Non-Af Amer) > 60 (>60) 02/10/18 12:20 Glucose 238 mg/dL (75-110) H 02/10/18 12:20 Lactic Acid 1.5 mmol/L (0.7-2.1) 02/10/18 15:40 Calcium 9.2 mg/dL (8.4-10.2) 02/10/18 12:20 Urine Color STRAW 02/10/18 12:30 Urine Appearance CLEAR 02/10/18 12:30 Urine pH 6.0 (5.0-9.0) 02/10/18 12:30 Ur Specific [place] 1.000 02/10/18 12:30 Urine Protein NEGATIVE mg/dL (NEGATIVE) 02/10/18 12:30 Urine Glucose (UA) >=500 mg/dL (NEGATIVE) H 02/10/18 12:30 Urine Ketones NEGATIVE mg/dL (NEGATIVE) 02/10/18 12:30 Urine Blood NEGATIVE (NEGATIVE) 02/10/18 12:30 Urine Nitrite NEGATIVE (NEGATIVE) 02/10/18 12:30 Ur Leukocyte Esterase NEGATIVE (NEGATIVE) 02/10/18 12:30 Urine RBC (Auto) 0 /HPF 02/10/18 12:30 02/10/18 12:20 Troponin I < 0.012 Impressions: Chest X-Ray 02/10/18 12:18 IMPRESSION: NO ACUTE RADIOGRAPHIC FINDING IN THE CHEST. Abdomen/Pelvis CT 02/10/18 12:23 IMPRESSION: Gastric distention. Ileus or partial small bowel obstruction. Assessment & Plan - Time Time Spent: 30 to 50 Minutes Medications reviewed and adjusted accordingly: Yes Anticipated discharge: Other Within: within 48 hours - Inpatient Certification Based on my medical assessment, after consideration of the patient's comorbidities, presenting symptoms, or acuity I expect that the services needed warrant INPATIENT care.: Yes Medical Necessity: Significant Comorbidiites Make Outpatient Treatment Too Risky , Need Close Monitoring Due to Risk of Patient Decompensation - Plan Summary Plan Summary: Due to gastric distention, ileus or partial small bowel obstruction seen on CT scan patient is being monitored at least overnight. She will be kept n.p.o. We will give a judicious IV fluid. Patient really has no symptoms related to the abdomen and exam is benign. We will repeat a KUB in a.m.
[2018-02-10] MEDS: ENOXAPARIN SODIUM INJ 40 MG/0.4 ML DISP.SYRIN SUBCUT SCH (19:15)
[2018-02-10] MEDS: FAMOTIDINE INJ/PF 20 MG/2 ML SDV IV SCH (22:21)
[2018-02-11 05:02] LABS: BLOOD UREA NITROGEN 12 mg/dL (7-20); CALCIUM 9.1 mg/dL (8.4-10.2); CARBON DIOXIDE 35 mmol/L (22-30); CHLORIDE 103 mmol/L (98-107); GLUCOSE 126 mg/dL (75-110); POTASSIUM 4.3 mmol/L (3.6-5.0); SODIUM 141.7 mmol/L (137-145)
[2018-02-11 05:03] LABS: ANION GAP 4 (5-19)
[2018-02-11] MEDS: FAMOTIDINE INJ/PF 20 MG/2 ML SDV IV SCH ×2 (09:53→22:13)
[2018-02-11] MEDS: ENOXAPARIN SODIUM INJ 40 MG/0.4 ML DISP.SYRIN SUBCUT SCH (09:53)
[2018-02-11] MEDS: ACETAMINOPHEN 325 MG TABLET PO PRN ×2 (11:55→16:52)
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
--- NOTE | 2018-02-11 14:50 | PDOC PROGRESS REPORT ---
Subjective Progress Note for:: 02/11/18 Subjective:: Patient has had BM, passing gas and no nausea and vomiting. Abdominal exam remains benign Reason For Visit: DEHYDRATION,TYPE 2 DM Physical Exam Vital Signs: Temp Pulse Resp BP Pulse Ox 98.3 F 81 17 114/69 98 02/11/18 11:56 02/11/18 11:56 02/11/18 11:56 02/11/18 11:56 02/11/18 11:56 Intake & Output 02/10/18 02/11/18 02/12/18 06:59 06:59 06:59 Intake Total 1000 Balance 1000 Weight 65.6 kg General appearance: PRESENT: no acute distress, well-developed Head exam: PRESENT: atraumatic, normocephalic Eye exam: PRESENT: conjunctiva pink, EOMI, PERRLA. ABSENT: scleral icterus Ear exam: PRESENT: normal external ear exam Mouth exam: PRESENT: moist, tongue midline Neck exam: ABSENT: carotid bruit, JVD, lymphadenopathy, thyromegaly Respiratory exam: PRESENT: clear to auscultation jamee. ABSENT: rales, rhonchi, wheezes Cardiovascular exam: PRESENT: RRR. ABSENT: diastolic murmur, rubs, systolic murmur Pulses: PRESENT: normal dorsalis pedis pul Vascular exam: PRESENT: normal capillary refill GI/Abdominal exam: PRESENT: normal bowel sounds, soft. ABSENT: distended, guarding, mass, organolmegaly, rebound, tenderness Rectal exam: PRESENT: deferred Extremities exam: PRESENT: full ROM. ABSENT: calf tenderness, clubbing, pedal edema Neurological exam: PRESENT: alert, awake, oriented to person, oriented to place , oriented to time, oriented to situation, CN II-XII grossly intact. ABSENT: motor sensory deficit Psychiatric exam: PRESENT: appropriate affect, normal mood. ABSENT: homicidal ideation, suicidal ideation Skin exam: PRESENT: dry, intact, warm. ABSENT: cyanosis, rash Results Laboratory Results: 02/11/18 03:44 02/11/18 03:44 Sodium 141.7 Potassium 4.3 Chloride 103 Carbon Dioxide 35 H Anion Gap 4 L BUN 12 Creatinine 0.81 Est GFR ( Amer) > 60 Est GFR (Non-Af Amer) > 60 Glucose 126 H Calcium 9.1 Impressions: Chest X-Ray 02/10/18 12:18 IMPRESSION: NO ACUTE RADIOGRAPHIC FINDING IN THE CHEST. Abdomen/Pelvis CT 02/10/18 12:23 IMPRESSION: Gastric distention. Ileus or partial small bowel obstruction. Assessment & Plan - Diagnosis (1) Ileus Is this a current diagnosis for this admission?: Yes Plan: Repeat KUB, start feeding if appropriate (3) Elevated lactic acid level Is this a current diagnosis for this admission?: Yes Plan: Resolved (5) Traumatic brain injury Qualifiers: Encounter type: sequela Is this a current diagnosis for this admission?: Yes Plan: Sedatives, antipsychotic Psych eval - Time Time Spent with patient: 15-24 minutes Medications reviewed and adjusted accordingly: Yes Anticipated discharge: Other Within: within 48 hours
--- NOTE | 2018-02-11 14:51 | RADIOLOGY REPORT (SQ) ---
EXAM DESCRIPTION: KUB/ABDOMEN (SINGLE VIEW) COMPLETED DATE/TIME: 02/11/2018 2:39 pm REASON FOR STUDY: Ileus, ?SBO COMPARISON: Abdominal CT scan dated 02/10/2018 NUMBER OF VIEWS: One view. TECHNIQUE: Supine radiographic image of the abdomen acquired. LIMITATIONS: None. FINDINGS: BOWEL GAS PATTERN: There is gaseous distention of multiple large and small bowel loops mos t consistent with an ileus pattern. Oral contrast is identified in the right colon. The possibility of an underlying obstruction cannot be completely excluded however. CALCIFICATIONS: None SOFT TISSUES: No gross mass or suggestion of organomegaly. HARDWARE: Scattered surgical clips are identified. BONES: No acute fracture. No worrisome bone lesions. OTHER: No other significant finding. IMPRESSION: Gaseous distention of multiple large and small bowel loops most consistent with an ileus pattern. The possibility of an underlying obstruction cannot be completely excluded however. Other findings as noted above. TECHNICAL DOCUMENTATION: JOB ID: [id number] [employer]- All Rights Reserved Reading location - IP/workstation name: [email or web address]
[2018-02-11] MEDS ORDERED: GLUCAGON,HUMAN RECOMB 1 MG INJ IM PRN (14:52)
[2018-02-11] MEDS ORDERED: DEXTROSE 50%-WATER SYRINGE 25 GM/50 ML DOSE IV PRN (14:52)
[2018-02-11] MEDS ORDERED: DEXTROSE 40% GEL 15 GM TUBE PO PRN (14:52)
[2018-02-11] MEDS ORDERED: DEXTROSE 50%-WATER SYRINGE 12.5 GM/25 ML DOSE IV PRN (14:52)
[2018-02-11] MEDS ORDERED: DEXTROSE 40% GEL 15 GM TUBE X 2 PO PRN (14:52)
--- NOTE | 2018-02-11 16:00 | Physician Advisory Note ---
Physician Advisor ProgressNote .: Pursuant to the plan for [facility], I have reviewed the medical record for this patient. Physician Advisor Statement: Please consider documentin. "syncope, suspect due to " - or was syncope r/o'd? 2. most likely cause of elevated lactate level, if any idea (volume depletion ? carbon monoxide poisoning? thiamine defic? a specific drug/toxin? liver dz ? ...) Thanks! CK
[2018-02-11] MEDS: HALOPERIDOL LACTATE INJ 5 MG/1 ML VIAL IV PRN (17:16)
[2018-02-11] MEDS: INSULIN LISPRO 100 UNIT/ML 3 ML VIAL SUBCUT PRN (17:34)
[2018-02-11] MEDS: BUSPIRONE HCL 10 MG TABLET PO SCH (22:12)
[2018-02-11] MEDS: DIVALPROEX SODIUM 250 MG TABLET.DR PO SCH (22:13)
[2018-02-12 04:46] LABS: ABSOLUTE EOSINOPHILS # (AUTO) 0.2 10^3/uL (0.0-0.6); ABSOLUTE LYMPHOCYTES (AUTO) 1.4 10^3/uL (0.5-4.7); ABSOLUTE MONOCYTES (AUTO) 0.5 10^3/uL (0.1-1.4); ABSOLUTE NEUT (AUTO) 2.2 10^3/uL (1.7-8.2); BASOPHILS % (AUTO) 0.8 % (0-2); EOSINOPHILS % (AUTO) 3.6 % (0-6); HEMATOCRIT 37.2 % (36.0-47.0); HEMOGLOBIN 12.8 g/dL (12.0-15.5); LYMPHOCYTES % (AUTO) 33.2 % (13-45); MEAN CORPUSCULAR HEMOGLOBIN 29.3 pg (27.0-33.4); MEAN CORPUSCULAR HGB CONC 34.4 g/dL (32.0-36.0); MEAN CORPUSCULAR VOLUME 85 fl (80-97); MONOCYTES % (AUTO) 11.5 % (3-13); PLATELET COUNT 172 10^3/uL (150-450); RED BLOOD COUNT 4.37 10^6/uL (3.72-5.28); RED CELL DISTRIBUTION WIDTH 14.3 % (11.5-14.0); SEGMENTED NEUTROPHILS % (AUTO) 50.9 % (42-78); TOTAL CELLS COUNTED % (AUTO) 100 %; WHITE BLOOD COUNT 4.3 10^3/uL (4.0-10.5)
[2018-02-12 05:06] LABS: ANION GAP 9 (5-19); BLOOD UREA NITROGEN 9 mg/dL (7-20); CARBON DIOXIDE 30 mmol/L (22-30); CHLORIDE 103 mmol/L (98-107); GLUCOSE 127 mg/dL (75-110); POTASSIUM 4.3 mmol/L (3.6-5.0); SODIUM 141.7 mmol/L (137-145)
[2018-02-12] MEDS: FAMOTIDINE INJ/PF 20 MG/2 ML SDV IV SCH ×2 (10:24→22:11)
[2018-02-12] MEDS: DIVALPROEX SODIUM 250 MG TABLET.DR PO SCH ×2 (10:24→22:11)
[2018-02-12] MEDS: BUSPIRONE HCL 10 MG TABLET PO SCH ×2 (10:24→22:11)
[2018-02-12] MEDS: ENOXAPARIN SODIUM INJ 40 MG/0.4 ML DISP.SYRIN SUBCUT SCH (10:25)
--- NOTE | 2018-02-12 12:21 | RADIOLOGY REPORT (SQ) ---
EXAM DESCRIPTION: KUB/ABDOMEN (SINGLE VIEW) COMPLETED DATE/TIME: 02/12/2018 12:05 pm REASON FOR STUDY: possible illeus COMPARISON: 02/11/2018 NUMBER OF VIEWS: One view. TECHNIQUE: Supine radiographic image of the abdomen acquired. LIMITATIONS: None. FINDINGS: BOWEL GAS PATTERN: Stable in appearance with distended large and small bowel. CALCIFICATIONS: No suspicious calcifications. SOFT TISSUES: No gross mass or suggestion of organomegaly. HARDWARE: None in the abdomen. BONES: No acute fracture. No worrisome bone lesions. OTHER: No other significant finding. IMPRESSION: No interval change with distention of large and small bowel. TECHNICAL DOCUMENTATION: JOB ID: [id number] [employer]- All Rights Reserved Reading location - IP/workstation name: [email or web address]
--- NOTE | 2018-02-12 16:59 | PDOC PROGRESS REPORT ---
Subjective Progress Note for:: 02/12/18 Subjective:: Patient has had BM, passing gas and no nausea and vomiting. Abdominal exam remains benign. Patient is tolerating liquid diet and she continues to have good bowel sounds as well as bowel movement however repeat KUB done today still shows colonic distention. Given patient's history of traumatic brain injury and some kind of psychosis she may as well have Lorraine's syndrome so at this point will go ahead and consult surgery for their input Reason For Visit: DEHYDRATION,TYPE 2 DM Physical Exam Vital Signs: Temp Pulse Resp BP Pulse Ox 97.8 F 74 16 116/76 100 02/12/18 11:26 02/12/18 11:26 02/12/18 11:26 02/12/18 11:26 02/12/18 11:26 Intake & Output 02/11/18 02/12/18 02/13/18 06:59 06:59 06:59 Intake Total 1000 1971 Balance 1000 1971 Weight 65.6 kg 69.2 kg General appearance: PRESENT: no acute distress, thin Head exam: PRESENT: atraumatic, normocephalic Eye exam: PRESENT: conjunctiva pink, EOMI, PERRLA. ABSENT: scleral icterus Ear exam: PRESENT: normal external ear exam Mouth exam: PRESENT: moist, tongue midline Neck exam: ABSENT: carotid bruit, JVD, lymphadenopathy, thyromegaly Respiratory exam: PRESENT: clear to auscultation jamee. ABSENT: rales, rhonchi, wheezes Cardiovascular exam: PRESENT: RRR. ABSENT: diastolic murmur, rubs, systolic murmur Pulses: PRESENT: normal dorsalis pedis pul Vascular exam: PRESENT: normal capillary refill GI/Abdominal exam: PRESENT: normal bowel sounds, soft. ABSENT: distended, guarding, mass, organolmegaly, rebound, tenderness Rectal exam: PRESENT: deferred Extremities exam: PRESENT: full ROM. ABSENT: calf tenderness, clubbing, pedal edema Neurological exam: PRESENT: alert, awake, oriented to person, oriented to place , oriented to time, oriented to situation, CN II-XII grossly intact. ABSENT: motor sensory deficit Psychiatric exam: PRESENT: appropriate affect, normal mood. ABSENT: homicidal ideation, suicidal ideation Skin exam: PRESENT: dry, intact, warm. ABSENT: cyanosis, rash Results Laboratory Results: 02/12/18 04:03 02/12/18 04:03 02/12/18 02/12/18 04:03 04:03 WBC 4.3 RBC 4.37 Hgb 12.8 Hct 37.2 MCV 85 MCH 29.3 MCHC 34.4 RDW 14.3 H Plt Count 172 Seg Neutrophils % 50.9 Lymphocytes % 33.2 Monocytes % 11.5 Eosinophils % 3.6 Basophils % 0.8 Absolute Neutrophils 2.2 Absolute Lymphocytes 1.4 Absolute Monocytes 0.5 Absolute Eosinophils 0.2 Absolute Basophils 0.0 Sodium 141.7 Potassium 4.3 Chloride 103 Carbon Dioxide 30 Anion Gap 9 BUN 9 Creatinine 0.66 Est GFR ( Amer) > 60 Est GFR (Non-Af Amer) > 60 Glucose 127 H Calcium 9.0 Magnesium 1.9 Impressions: Chest X-Ray 02/10/18 12:18 IMPRESSION: NO ACUTE RADIOGRAPHIC FINDING IN THE CHEST. Abdomen/Pelvis CT 02/10/18 12:23 IMPRESSION: Gastric distention. Ileus or partial small bowel obstruction. KUB X-Ray 02/12/18 08:00 IMPRESSION: No interval change with distention of large and small bowel. Assessment & Plan - Diagnosis (1) Ileus Is this a current diagnosis for this admission?: Yes (3) Elevated lactic acid level Is this a current diagnosis for this admission?: Yes Plan: Likely secondary to dehydration. This has resolved (4) Hyperglycemia Is this a current diagnosis for this admission?: Yes Plan: Has h/o Type 2 DM (5) Traumatic brain injury Qualifiers: Encounter type: sequela Is this a current diagnosis for this admission?: Yes Plan: Details unknown Sedatives, antipsychotic Psych eval - Time Time Spent with patient: 15-24 minutes Medications reviewed and adjusted accordingly: Yes Anticipated discharge: Other Within: within 48 hours - Inpatient Certification Based on my medical assessment, after consideration of the patient's comorbidities, presenting symptoms, or acuity I expect that the services needed warrant INPATIENT care.: Yes Medical Necessity: Need Close Monitoring Due to Risk of Patient Decompensation, Risk of Complication if Not Cared For in Hospital - Plan Summary Plan Summary: We will consult surgery for further evaluation for possible Al's. Patient is in a situation that is currently being investigated by adult protective services and will follow up with them as well as case coordinator to ensure proper transitioning at discharge. Although there was a mention of syncope on admission I could not verify this and so this is not part of my diagnosis
[2018-02-12] MEDS: NORMAL SALINE 1000 ML 1,000 ML IV PRN (18:19)
--- NOTE | 2018-02-12 22:21 | PDOC CONSULTATION ---
History of Present Illness Admission Date/PCP: 02/10/18 16:03 Patient complains of: Left lower quadrant abdominal pain and constipation History of Present Illness: DENICE TELLO is a 52 year old female who presented to the hospital with hyperglycemia and dehydration was noted with a several month history of worsening constipation from her chronic constipation state. She has also been experiencing over the past several weeks left lower quadrant abdominal pain. No fevers or chills. Patient was noted with hematuria. Uncertain whether she has had any blood per rectum however. No melena. No alcohol nor NSAID abuse in the past. Patient had underwent an abdominal pelvic CT scan which demonstrated dilated loops of small and large bowel throughout including the rectum. Patient has been passing gas although she still suffers from constipation. She has not had any nausea or vomiting in the past several days. But she notes that she has had some occasional nausea and vomiting and in the past several weeks. She has no family history of colon cancer that she knows of. She has had a history of hysterectomy for uterine cancer in the remote past. She has never had a colonoscopy. Past Medical History Endocrine Medical History: Reports: Diabetes Mellitus Type 2 - controlled Malignancy Medical History: Reports: Cervical Cancer Musculoskeltal Medical History: Reports: Arthritis Psychiatric Medical History: Reports: Dementia Past Surgical History Past Surgical History: Reports: Hysterectomy, Orthopedic Surgery - back/hip plate Social History Smoking Status: Never Smoker Frequency of Alcohol Use: Rare - Advance Directive Resuscitation Status: Full Code Family History Family History: CAD, CVA, DM, Hyperlipidemia, Hypertension, Malignancy Parental Family History Reviewed: Yes - Mother with a [employer] cancer Children Family History Reviewed: Yes Sibling(s) Family History Reviewed.: Yes Medication/Allergy Home Medications: No Home Medications 11/23/15 Allergies/Adverse Reactions: alendronate sodium Allergy (Verified 01/20/18 12:49) Penicillins Allergy (Verified 01/20/18 12:49) pentazocine Allergy (Verified 01/20/18 12:49) risedronate sodium Allergy (Verified 01/20/18 12:49) Physical Exam Vital Signs: Temp Pulse Resp BP Pulse Ox 97.7 F 77 20 147/84 H 100 02/12/18 15:18 02/12/18 15:18 02/12/18 15:18 02/12/18 15:18 02/12/18 15:18 Intake & Output 02/11/18 02/12/18 02/13/18 06:59 06:59 06:59 Intake Total 1000 1970 829 Balance 1000 1970 829 Weight 65.6 kg 69.2 kg General appearance: PRESENT: no acute distress, cooperative Eye exam: PRESENT: conjunctiva pink Neck exam: PRESENT: other - Neck supple with no masses Respiratory exam: PRESENT: clear to auscultation jamee Cardiovascular exam: PRESENT: RRR GI/Abdominal exam: PRESENT: other - Soft, nondistended, very mild tenderness in the left lower quadrant without peritoneal signs. No palpable hernia defects Neurological exam: PRESENT: alert, awake Psychiatric exam: PRESENT: appropriate affect Skin exam: PRESENT: warm Results Laboratory Results: 02/12/18 04:03 02/12/18 04:03 02/12/18 02/12/18 04:03 04:03 WBC 4.3 RBC 4.37 Hgb 12.8 Hct 37.2 MCV 85 MCH 29.3 MCHC 34.4 RDW 14.3 H Plt Count 172 Seg Neutrophils % 50.9 Lymphocytes % 33.2 Monocytes % 11.5 Eosinophils % 3.6 Basophils % 0.8 Absolute Neutrophils 2.2 Absolute Lymphocytes 1.4 Absolute Monocytes 0.5 Absolute Eosinophils 0.2 Absolute Basophils 0.0 Sodium 141.7 Potassium 4.3 Chloride 103 Carbon Dioxide 30 Anion Gap 9 BUN 9 Creatinine 0.66 Est GFR ( Amer) > 60 Est GFR (Non-Af Amer) > 60 Glucose 127 H Calcium 9.0 Magnesium 1.9 Impressions: Chest X-Ray 02/10/18 12:18 IMPRESSION: NO ACUTE RADIOGRAPHIC FINDING IN THE CHEST. Abdomen/Pelvis CT 02/10/18 12:23 IMPRESSION: Gastric distention. Ileus or partial small bowel obstruction. KUB X-Ray 02/12/18 08:00 IMPRESSION: No interval change with distention of large and small bowel. Assessment & Plan - Diagnosis (1) Abdominal pain, chronic, left lower quadrant Is this a current diagnosis for this admission?: Yes Plan: Without evidence of diverticulitis by CT scan. There is gaseous distention of small and large bowel. With gas in the rectum. With her several week history of left lower quadrant abdominal pain and her abnormal bowel gas pattern, colonoscopy is indicated. Will plan a bowel prep tomorrow with colonoscopy this weekend. I have discussed with the patient the risk and benefits of the procedure including risk of colon injury and bleeding. Patient understands and agrees to proceed. Please keep patient on a clear liquid diet for now.
--- NOTE | 2018-02-12 22:41 | PDOC PROGRESS REPORT ---
Subjective Reason For Visit: DEHYDRATION,TYPE 2 DM Physical Exam Vital Signs: Temp Pulse Resp BP Pulse Ox 97.7 F 77 20 147/84 H 100 02/12/18 15:18 02/12/18 15:18 02/12/18 15:18 02/12/18 15:18 02/12/18 15:18 Intake & Output 02/11/18 02/12/18 02/13/18 06:59 06:59 06:59 Intake Total 1000 1970 829 Balance 1000 1970 829 Weight 65.6 kg 69.2 kg Results Laboratory Results: 02/12/18 04:03 02/12/18 04:03 02/12/18 02/12/18 04:03 04:03 WBC 4.3 RBC 4.37 Hgb 12.8 Hct 37.2 MCV 85 MCH 29.3 MCHC 34.4 RDW 14.3 H Plt Count 172 Seg Neutrophils % 50.9 Lymphocytes % 33.2 Monocytes % 11.5 Eosinophils % 3.6 Basophils % 0.8 Absolute Neutrophils 2.2 Absolute Lymphocytes 1.4 Absolute Monocytes 0.5 Absolute Eosinophils 0.2 Absolute Basophils 0.0 Sodium 141.7 Potassium 4.3 Chloride 103 Carbon Dioxide 30 Anion Gap 9 BUN 9 Creatinine 0.66 Est GFR ( Amer) > 60 Est GFR (Non-Af Amer) > 60 Glucose 127 H Calcium 9.0 Magnesium 1.9 Impressions: Chest X-Ray 02/10/18 12:18 IMPRESSION: NO ACUTE RADIOGRAPHIC FINDING IN THE CHEST. Abdomen/Pelvis CT 02/10/18 12:23 IMPRESSION: Gastric distention. Ileus or partial small bowel obstruction. KUB X-Ray 02/12/18 08:00 IMPRESSION: No interval change with distention of large and small bowel. Assessment & Plan - Diagnosis (1) Abdominal pain, chronic, left lower quadrant Is this a current diagnosis for this admission?: Yes Plan: Without evidence of diverticulitis by CT scan. There is gaseous distention of small and large bowel. With gas in the rectum. With her several week history of left lower quadrant abdominal pain and her abnormal bowel gas pattern, colonoscopy is indicated. Will plan a bowel prep tomorrow with colonoscopy this weekend. I have discussed with the patient the risk and benefits of the procedure including risk of colon injury and bleeding. Patient understands and agrees to proceed. Please keep patient on a clear liquid diet for now. Upon further questioning the patient she does demonstrates evidence of dementia and I am uncertain that she fully comprehends the procedure that were planning. Will discuss in the morning with hospitalist about how to obtain informed consent for this patient with dementia.
[2018-02-13] MEDS ORDERED: PEG 3350/NA SULF,BICARB,CL/KCL 4000 ML ONE (01:53)
[2018-02-13] MEDS ORDERED: PEG 3350/NA SULF,BICARB,CL/KCL 4000 ML PO SCH (06:00)
--- NOTE | 2018-02-13 08:24 | PDOC PROGRESS REPORT ---
Subjective Progress Note for:: 02/13/18 Subjective:: Patient was observed sitting in chair appearing comfortable Upon questioning, she reports some mild abdominal discomfort She said she had diarrhea today but the nurses she had only 2 bowel movements and there was no report on its consistency She did not eat her breakfast yet but she is not nauseous and has not vomited She said she burps a lot Reason For Visit: DEHYDRATION,TYPE 2 DM Physical Exam Vital Signs: Temp Pulse Resp BP Pulse Ox 97.6 F 105 H 17 157/88 H 100 02/13/18 08:00 02/13/18 08:00 02/13/18 08:00 02/13/18 08:00 02/13/18 08:00 Intake & Output 02/12/18 02/13/18 02/14/18 06:59 06:59 06:59 Intake Total 1970 2484 Balance 1970 2484 Weight 152 lb 8.958 oz 151 lb 7.321 oz General appearance: PRESENT: no acute distress, cooperative Head exam: PRESENT: atraumatic, normocephalic Eye exam: PRESENT: conjunctiva pink, EOMI, PERRLA. ABSENT: scleral icterus Ear exam: PRESENT: normal external ear exam Mouth exam: PRESENT: moist, tongue midline Neck exam: ABSENT: carotid bruit, JVD, lymphadenopathy, thyromegaly Respiratory exam: PRESENT: clear to auscultation jamee. ABSENT: rales, rhonchi, wheezes Cardiovascular exam: PRESENT: RRR. ABSENT: diastolic murmur, rubs, systolic murmur Pulses: PRESENT: normal dorsalis pedis pul Vascular exam: PRESENT: normal capillary refill GI/Abdominal exam: PRESENT: distended, hyperactive bowel sounds, tenderness Rectal exam: PRESENT: deferred Extremities exam: PRESENT: full ROM. ABSENT: calf tenderness, clubbing, pedal edema Neurological exam: PRESENT: alert, awake, oriented to place. ABSENT: oriented to person, oriented to time Psychiatric exam: PRESENT: unusual affect. ABSENT: agitated, anxious, depressed Skin exam: PRESENT: dry, intact, warm. ABSENT: cyanosis, rash Results Laboratory Results: 02/12/18 04:03 02/12/18 04:03 Impressions: Chest X-Ray 02/10/18 12:18 IMPRESSION: NO ACUTE RADIOGRAPHIC FINDING IN THE CHEST. Abdomen/Pelvis CT 02/10/18 12:23 IMPRESSION: Gastric distention. Ileus or partial small bowel obstruction. KUB X-Ray 02/12/18 08:00 IMPRESSION: No interval change with distention of large and small bowel. Assessment & Plan - Diagnosis (1) Abdominal pain Qualifiers: Abdominal location: generalized Qualified Code(s): R10.84 - Generalized abdominal pain Is this a current diagnosis for this admission?: Yes Plan: Continue current pain management Scheduled for colonoscopy today (2) Dehydration Is this a current diagnosis for this admission?: Yes Plan: Continue IV fluids Monitor electrolytes and renal function (3) Hyperglycemia Is this a current diagnosis for this admission?: Yes Plan: Continue insulin coverage Check A1c (4) Ileus Is this a current diagnosis for this admission?: Yes Plan: Surgical service are following and she is scheduled for colonoscopy today (5) Traumatic brain injury Qualifiers: Encounter type: sequela Is this a current diagnosis for this admission?: Yes
--- NOTE | 2018-02-13 09:22 | RADIOLOGY REPORT (SQ) ---
EXAM DESCRIPTION: KUB/ABDOMEN (SINGLE VIEW) COMPLETED DATE/TIME: 02/13/2018 9:08 am REASON FOR STUDY: possible illeus COMPARISON: 02/12/2018 NUMBER OF VIEWS: One view. TECHNIQUE: Supine radiographic image of the abdomen acquired. LIMITATIONS: None. FINDINGS: BOWEL GAS PATTERN: There is now severe gastric distention. Colonic distention is stable. CALCIFICATIONS: No suspicious calcifications. SOFT TISSUES: No gross mass or suggestion of organomegaly. HARDWARE: Unchanged. BONES: No acute fracture. No worrisome bone lesions. OTHER: No other significant finding. IMPRESSION: Severe gastric distention new from prior study. NG tube is recommended. TECHNICAL DOCUMENTATION: JOB ID: [id number] [employer]- All Rights Reserved Reading location - IP/workstation name: [email or web address]
[2018-02-13] MEDS: FAMOTIDINE INJ/PF 20 MG/2 ML SDV IV SCH ×2 (10:21→21:15)
[2018-02-13] MEDS: BUSPIRONE HCL 10 MG TABLET PO SCH ×2 (10:23→21:15)
[2018-02-13] MEDS: ENOXAPARIN SODIUM INJ 40 MG/0.4 ML DISP.SYRIN SUBCUT SCH (10:23)
[2018-02-13] MEDS: DIVALPROEX SODIUM 250 MG TABLET.DR PO SCH ×2 (10:23→21:15)
[2018-02-13] MEDS: NORMAL SALINE 1000 ML 1,000 ML IV PRN (10:40)
--- NOTE | 2018-02-13 10:47 | RADIOLOGY REPORT (SQ) ---
EXAM DESCRIPTION: KUB/ABDOMEN (SINGLE VIEW) COMPLETED DATE/TIME: 02/13/2018 10:34 am REASON FOR STUDY: Check Placement of NG Tube COMPARISON: 02/13/2018 at 0821 hours. NUMBER OF VIEWS: One view. TECHNIQUE: Supine radiographic image of the abdomen acquired. LIMITATIONS: None. FINDINGS: BOWEL GAS PATTERN: Diffuse gas throughout the bowel. Gastric distention has improved foll owing placement of the nasogastric tube. CALCIFICATIONS: No suspicious calcifications. SOFT TISSUES: No gross mass or suggestion of organomegaly. HARDWARE: Nasogastric tube with the tip in the stomach. Surgical clips. BONES: No acute fracture. No worrisome bone lesions. OTHER: No other significant finding. IMPRESSION: NASOGASTRIC TUBE WITH THE TIP IN THE STOMACH. GASTRIC DISTENTION HAS IMPROVED. TECHNICAL DOCUMENTATION: JOB ID: [id number] [employer]- All Rights Reserved Reading location - IP/workstation name: [email or web address]
[2018-02-13] MEDS ORDERED: DIPHENHYDRAMINE HCL 50 MG/ML VIAL ONE (14:29)
[2018-02-13] MEDS ORDERED: FENTANYL CITRATE INJ/PF 100 MCG/2 ML AMPUL ONE (14:29)
[2018-02-13] MEDS ORDERED: ONDANSETRON HCL INJ/PF 4 MG/2 ML SDV ONE (14:29)
[2018-02-13] MEDS ORDERED: FLUMAZENIL INJ 0.5 MG/5 ML VIAL ONE (14:30)
[2018-02-13] MEDS ORDERED: GLUCAGON,HUMAN RECOMB 1 MG INJ ONE (14:30)
[2018-02-13] MEDS ORDERED: NALOXONE HCL INJ/PF 0.4 MG/1 ML SDV ONE (14:30)
[2018-02-13] MEDS ORDERED: EPINEPHRINE INJ 1 MG/10 ML DISP.SYRIN ONE (14:30)
[2018-02-13] MEDS: MIDAZOLAM 2 MG/2 ML INJ ONE ×2 (14:55→14:59)
--- NOTE | 2018-02-13 16:00 | Operative Report ---
Operative Report DATE OF SURGERY: 02/13/18 PREOPERATIVE DIAGNOSIS: 1. Rule out bowel obstruction. 2. History of dementia POSTOPERATIVE DIAGNOSIS: Same with no evidence of obstruction in the transverse , left colon or rectosigmoid colon OPERATION: Colonoscopy to the hepatic flexure SURGEON: JERRELL RILEY ANESTHESIA: Moderate Sedation TISSUE REMOVED OR ALTERED: None COMPLICATIONS: None ESTIMATED BLOOD LOSS: Scant INTRAOPERATIVE FINDINGS: See below PROCEDURE: The patient was taken from the fifth floor to the endoscopy suite where conscious sedation was induced. She is placed in left lateral decubitus position. Surgical plan surgical timeout were conducted The flexible pediatric colonoscope was advanced to the anorectal canal bowel prep was excellent. The scope was advanced through the rectosigmoid junction and into the left colon. Unfortunately due to the patient's tortuous, redundant and very patulous colon, it was very challenging to mechanically advance the colonoscope retrograde fashion up the colon. We manipulated the patient by putting her in the left lateral cutis position right lateral decubitus position and even in the near prone position. We are eventually able to advance the colonoscope all the way to the hepatic flexure. She tolerated this well the sedation was sufficient. Again the bowel prep was very good and there was no evidence of pathology seen from the hepatic flexure of the way distally to the anal rectal canal. Because of the extreme difficulty manipulating the colonoscope again from a mechanical standpoint through this redundant colon, we did not attempt advanced the scope into the right colon. The scope was withdrawn from the patient's anus. She tolerated procedure well Impression: None mechanical source of chronic obstruction from the hepatic flexure distally; low suspicion of obstruction involving the right colon Commendations: 1. Discussed with primary care service. I doubt this is a surgical problem. To definitively rule out obstruction, contrast study would be step. 2. I believe the patient would improve with nasogastric decompression, and IV fluids. 3. Surgery will sign off; reconsult if needed
[2018-02-13] MEDS: HALOPERIDOL LACTATE INJ 5 MG/1 ML VIAL IV PRN (19:52)
[2018-02-14] MEDS: NORMAL SALINE 1000 ML 1,000 ML IV PRN ×2 (01:46→15:58)
[2018-02-14] MEDS: HALOPERIDOL LACTATE INJ 5 MG/1 ML VIAL IV PRN (01:46)
[2018-02-14] MEDS: ACETAMINOPHEN 325 MG TABLET PO PRN (01:47)
[2018-02-14 05:49] LABS: HEMATOCRIT 35.7 % (36.0-47.0); HEMOGLOBIN 12.5 g/dL (12.0-15.5); MEAN CORPUSCULAR HEMOGLOBIN 29.5 pg (27.0-33.4); MEAN CORPUSCULAR VOLUME 84 fl (80-97); PLATELET COUNT 161 10^3/uL (150-450); RED BLOOD COUNT 4.23 10^6/uL (3.72-5.28); RED CELL DISTRIBUTION WIDTH 14.2 % (11.5-14.0); WHITE BLOOD COUNT 6.9 10^3/uL (4.0-10.5)
[2018-02-14 06:14] LABS: ALANINE AMINOTRANSFERASE 32 U/L (9-52); ALBUMIN 3.7 g/dL (3.5-5.0); ALKALINE PHOSPHATASE 114 U/L (38-126); ANION GAP 9 (5-19); ASPARTATE AMINO TRANSFERASE 27 U/L (14-36); BILIRUBIN,DIRECT 0.4 mg/dL (0.0-0.4); BILIRUBIN,TOTAL 0.7 mg/dL (0.2-1.3); BLOOD UREA NITROGEN 8 mg/dL (7-20); CALCIUM 9.1 mg/dL (8.4-10.2); CARBON DIOXIDE 30 mmol/L (22-30); CHLORIDE 102 mmol/L (98-107); GLUCOSE 125 mg/dL (75-110); POTASSIUM 4.1 mmol/L (3.6-5.0); SODIUM 140.6 mmol/L (137-145); TOTAL PROTEIN 6.6 g/dL (6.3-8.2)
--- NOTE | 2018-02-14 08:40 | RADIOLOGY REPORT (SQ) ---
EXAM DESCRIPTION: KUB/ABDOMEN (SINGLE VIEW) COMPLETED DATE/TIME: 02/14/2018 8:25 am REASON FOR STUDY: possible illeus COMPARISON: 02/13/2018. 02/12/2018. NUMBER OF VIEWS: One view. TECHNIQUE: Supine radiographic image of the abdomen acquired. LIMITATIONS: None. FINDINGS: BOWEL GAS PATTERN: Improved gastric distention. Gaseous distention in the abdomen remains otherwise, mostly large bowel today's study. CALCIFICATIONS: No suspicious calcifications. SOFT TISSUES: No gross mass or suggestion of organomegaly. HARDWARE: None in the abdomen. BONES: Osteopenic, limited evaluation. OTHER: No other significant finding. IMPRESSION: Improved gastric distention. Gaseous distention, predominantly colon. TECHNICAL DOCUMENTATION: JOB ID: [id number] [employer]- All Rights Reserved Reading location - IP/workstation name: [email or web address]
[2018-02-14] MEDS ORDERED: LORAZEPAM INJ 2 MG/1 ML VIAL IV PRN (09:12)
[2018-02-14] MEDS: DIVALPROEX SODIUM 250 MG TABLET.DR PO SCH ×2 (09:19→21:35)
[2018-02-14] MEDS: FAMOTIDINE INJ/PF 20 MG/2 ML SDV IV SCH ×2 (09:19→21:34)
[2018-02-14] MEDS: ENOXAPARIN SODIUM INJ 40 MG/0.4 ML DISP.SYRIN SUBCUT SCH ×2 (09:20→09:25)
[2018-02-14] MEDS: BUSPIRONE HCL 10 MG TABLET PO SCH ×2 (09:20→21:35)
--- NOTE | 2018-02-14 09:21 | PDOC PROGRESS REPORT ---
Subjective Progress Note for:: 02/14/18 Subjective:: Patient is anxious and tells me that she has nothing to do in this hospital She denies abdominal pain nausea or vomiting Colonoscopy was done yesterday and shows redundant very patulous colon and colonoscope could not be advanced past the hepatic flexure due to very tortuous colon No signs of obstruction as I discussed with Dr. El Reason For Visit: ILEUS,DEHYDRATION,HYPERGLYCEMIA Physical Exam Vital Signs: Temp Pulse Resp BP Pulse Ox 97.6 F 88 17 120/63 94 02/14/18 07:47 02/14/18 07:47 02/14/18 07:47 02/14/18 07:47 02/14/18 07:47 Intake & Output 02/13/18 02/14/18 02/15/18 06:59 06:59 06:59 Intake Total 1290 Output Total 400 Balance 890 Weight 138 lb 14.259 oz General appearance: PRESENT: no acute distress, well-developed, well-nourished Head exam: PRESENT: atraumatic, normocephalic Eye exam: PRESENT: conjunctiva pink, EOMI, PERRLA. ABSENT: scleral icterus Ear exam: PRESENT: normal external ear exam Mouth exam: PRESENT: moist, tongue midline Neck exam: ABSENT: carotid bruit, JVD, lymphadenopathy, thyromegaly Respiratory exam: PRESENT: clear to auscultation jamee. ABSENT: rales, rhonchi, wheezes Cardiovascular exam: PRESENT: RRR. ABSENT: diastolic murmur, rubs, systolic murmur Pulses: PRESENT: normal dorsalis pedis pul Vascular exam: PRESENT: normal capillary refill GI/Abdominal exam: PRESENT: hyperactive bowel sounds, soft. ABSENT: distended, guarding, mass, organolmegaly, rebound, tenderness Rectal exam: PRESENT: deferred Extremities exam: PRESENT: full ROM. ABSENT: calf tenderness, clubbing, pedal edema Neurological exam: PRESENT: alert, awake, CN II-XII grossly intact, normal gait. ABSENT: motor sensory deficit Psychiatric exam: PRESENT: anxious Results Laboratory Results: 02/14/18 05:20 02/14/18 05:20 02/14/18 02/14/18 05:20 05:20 WBC 6.9 RBC 4.23 Hgb 12.5 Hct 35.7 L MCV 84 MCH 29.5 MCHC 35.0 RDW 14.2 H Plt Count 161 Sodium 140.6 Potassium 4.1 Chloride 102 Carbon Dioxide 30 Anion Gap 9 BUN 8 Creatinine 0.69 Est GFR ( Amer) > 60 Est GFR (Non-Af Amer) > 60 Glucose 125 H Calcium 9.1 Total Bilirubin 0.7 AST 27 ALT 32 Alkaline Phosphatase 114 Total Protein 6.6 Albumin 3.7 Impressions: Chest X-Ray 02/10/18 12:18 IMPRESSION: NO ACUTE RADIOGRAPHIC FINDING IN THE CHEST. Abdomen/Pelvis CT 02/10/18 12:23 IMPRESSION: Gastric distention. Ileus or partial small bowel obstruction. KUB X-Ray 02/14/18 08:00 IMPRESSION: Improved gastric distention. Gaseous distention, predominantly colon. Assessment & Plan - Diagnosis (1) Abdominal pain Qualifiers: Abdominal location: generalized Qualified Code(s): R10.84 - Generalized abdominal pain Is this a current diagnosis for this admission?: Yes Plan: Pain is significantly improved (2) Dehydration Is this a current diagnosis for this admission?: Yes Plan: Continue IV fluids Monitor electrolytes and renal function (3) Hyperglycemia Is this a current diagnosis for this admission?: Yes Plan: Continue insulin coverage A1c is 7.2 (4) Ileus Is this a current diagnosis for this admission?: Yes (5) Traumatic brain injury Qualifiers: Encounter type: sequela Is this a current diagnosis for this admission?: Yes - Plan Summary Plan Summary: Patient has chronic intestinal pseudoobstruction colon is redundant and very patulous on colonoscopy Stomach is very dilated and required NG tube placement yesterday which the patient removed We will check bowel series We will keep her n.p.o. for now We will check inflammatory and autoimmune serology She may require prokinetic medications like Reglan or neostigmine She may need TPN or possibly transfer to tertiary care facility
--- NOTE | 2018-02-14 11:19 | RADIOLOGY REPORT (SQ) ---
EXAM DESCRIPTION: SMALL BOWEL SERIES COMPLETED DATE/TIME: 02/14/2018 11:09 am REASON FOR STUDY: colonic pseudo-obstruction COMPARISON: None. FLUOROSCOPY TIME: Not applicable, no spot imaging performed. 2 standard supine portable AP images saved to PACS. LIMITATIONS: None. PROCEDURE: Initial label stitcher image of abdomen was performed earlier, please see KUB from earlier same da te. Administration of oral contrast. 50/50 Gastrografin administered. Serial radiographic images a cquired. All images stored on PACS. FINDINGS: STOMACH: Well distended but normal on initial immediate image. DUODENUM: No suggestion of overt malrotation or obstruction. JEJUNUM: Normal mucosal pattern. No dilatation, segmentation, strictures or masses. ILEUM: Normal mucosal pattern. No dilatation, segmentation, strictures or masses. TERMINAL ILEUM AND ILEO-CECAL VALVE: No regional mass or distortion identified. PROXIMAL COLON: Ascending colon already opacified by 1 hour. Normal appearance as assessed. OTHER: No other significant finding. IMPRESSION: Rapid transition time. 1 hour post ingestion, contrast has already extended into the la rge bowel. No abnormal loops detected. COMMENT: Quality ID [id number]: Final reports for procedures using fluoroscopy that document radiation exp osure indices, or exposure time and number of fluorographic images (if radiation exposure indices are not available) TECHNICAL DOCUMENTATION: JOB ID: [id number] [employer]- All Rights Reserved Reading location - IP/workstation name: [email or web address]
[2018-02-14 11:35] LABS: C-REACTIVE PROTEIN 21.7 mg/L (<10.0)
[2018-02-14 12:39] LABS: FOLATE 17.1 ng/mL (>2.76)
[2018-02-15 05:50] LABS: ABSOLUTE EOSINOPHILS # (AUTO) 0.1 10^3/uL (0.0-0.6); ABSOLUTE LYMPHOCYTES (AUTO) 1.3 10^3/uL (0.5-4.7); ABSOLUTE MONOCYTES (AUTO) 0.4 10^3/uL (0.1-1.4); ABSOLUTE NEUT (AUTO) 1.8 10^3/uL (1.7-8.2); BASOPHILS % (AUTO) 0.7 % (0-2); EOSINOPHILS % (AUTO) 3.2 % (0-6); HEMATOCRIT 35.1 % (36.0-47.0); HEMOGLOBIN 12.3 g/dL (12.0-15.5); LYMPHOCYTES % (AUTO) 36.3 % (13-45); MEAN CORPUSCULAR HEMOGLOBIN 29.5 pg (27.0-33.4); MEAN CORPUSCULAR VOLUME 84 fl (80-97); MONOCYTES % (AUTO) 10.6 % (3-13); PLATELET COUNT 153 10^3/uL (150-450); RED BLOOD COUNT 4.17 10^6/uL (3.72-5.28); RED CELL DISTRIBUTION WIDTH 14.3 % (11.5-14.0); SEGMENTED NEUTROPHILS % (AUTO) 49.2 % (42-78); TOTAL CELLS COUNTED % (AUTO) 100 %; WHITE BLOOD COUNT 3.7 10^3/uL (4.0-10.5)
[2018-02-15 06:11] LABS: ALANINE AMINOTRANSFERASE 43 U/L (9-52); ALBUMIN 3.8 g/dL (3.5-5.0); ALKALINE PHOSPHATASE 120 U/L (38-126); ANION GAP 9 (5-19); ASPARTATE AMINO TRANSFERASE 39 U/L (14-36); BILIRUBIN,DIRECT 0.5 mg/dL (0.0-0.4); BILIRUBIN,TOTAL 0.8 mg/dL (0.2-1.3); BLOOD UREA NITROGEN 12 mg/dL (7-20); CALCIUM 9.3 mg/dL (8.4-10.2); CARBON DIOXIDE 27 mmol/L (22-30); CHLORIDE 105 mmol/L (98-107); GLUCOSE 78 mg/dL (75-110); POTASSIUM 4.3 mmol/L (3.6-5.0); SODIUM 141.3 mmol/L (137-145); TOTAL PROTEIN 6.9 g/dL (6.3-8.2)
[2018-02-15] MEDS: NORMAL SALINE 1000 ML 1,000 ML IV PRN ×2 (06:42→14:50)
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
--- NOTE | 2018-02-15 08:26 | RADIOLOGY REPORT (SQ) ---
EXAM DESCRIPTION: KUB/ABDOMEN (SINGLE VIEW) COMPLETED DATE/TIME: 02/15/2018 8:05 am REASON FOR STUDY: possible illeus COMPARISON: 02/14/2018. NUMBER OF VIEWS: One view. TECHNIQUE: Supine radiographic image of the abdomen acquired. LIMITATIONS: None. FINDINGS: BOWEL GAS PATTERN: Gastric distention. Mild proximal colonic distention. Some enteric co ntrast remains in the colon from yesterday small-bowel follow-through study. CALCIFICATIONS: No suspicious calcifications. SOFT TISSUES: No gross mass or suggestion of organomegaly. HARDWARE: None in the abdomen. BONES: No acute fracture. No worrisome bone lesions. OTHER: No other significant finding. IMPRESSION: Allowing for mild gas and persistent contrast distension, no overt bowel obstruction. M ost of the contrast has cleared the GI tract. TECHNICAL DOCUMENTATION: JOB ID: [id number] [employer]- All Rights Reserved Reading location - IP/workstation name: [email or web address]
[2018-02-15] MEDS: ENOXAPARIN SODIUM INJ 40 MG/0.4 ML DISP.SYRIN SUBCUT SCH (09:31)
[2018-02-15] MEDS: FAMOTIDINE INJ/PF 20 MG/2 ML SDV IV SCH ×2 (09:35→21:23)
[2018-02-15] MEDS: BUSPIRONE HCL 10 MG TABLET PO SCH ×2 (09:35→21:23)
[2018-02-15] MEDS: DIVALPROEX SODIUM 250 MG TABLET.DR PO SCH ×2 (09:35→21:25)
[2018-02-15] MEDS: ACETAMINOPHEN 325 MG TABLET PO PRN (13:50)
[2018-02-16] MEDS: NORMAL SALINE 1000 ML 1,000 ML IV PRN ×2 (02:14→21:20)
--- NOTE | 2018-02-16 08:01 | PDOC PROGRESS REPORT ---
Subjective Progress Note for:: 02/16/18 Subjective:: No abdominal pain, nausea, vomiting or diarrhea Patient is hungry and wants her diet to be advanced Reason For Visit: ILEUS,DEHYDRATION,HYPERGLYCEMIA Physical Exam Vital Signs: Temp Pulse Resp BP Pulse Ox 97.4 F 69 17 128/68 H 100 02/15/18 23:08 02/15/18 23:08 02/15/18 23:08 02/15/18 23:08 02/15/18 23:08 Intake & Output 02/15/18 02/16/18 02/17/18 06:59 06:59 06:59 Intake Total 1999 4344 Balance 1999 4344 Weight 139 lb 8.842 oz 137 lb 9.095 oz General appearance: PRESENT: no acute distress, well-developed, well-nourished Head exam: PRESENT: atraumatic Eye exam: PRESENT: conjunctiva pink, EOMI, PERRLA. ABSENT: scleral icterus Ear exam: PRESENT: normal external ear exam Mouth exam: PRESENT: moist, tongue midline Neck exam: ABSENT: carotid bruit, JVD, lymphadenopathy, thyromegaly Respiratory exam: PRESENT: clear to auscultation jamee. ABSENT: rales, rhonchi, wheezes Cardiovascular exam: PRESENT: RRR. ABSENT: diastolic murmur, rubs, systolic murmur Pulses: PRESENT: normal dorsalis pedis pul Vascular exam: PRESENT: normal capillary refill GI/Abdominal exam: PRESENT: normal bowel sounds, soft. ABSENT: distended, guarding, mass, organolmegaly, rebound, tenderness Rectal exam: PRESENT: deferred Extremities exam: PRESENT: full ROM. ABSENT: calf tenderness, clubbing, pedal edema Neurological exam: PRESENT: alert, awake Psychiatric exam: ABSENT: agitated, anxious Results Laboratory Results: 02/15/18 05:09 02/15/18 05:09 Impressions: Chest X-Ray 02/10/18 12:18 IMPRESSION: NO ACUTE RADIOGRAPHIC FINDING IN THE CHEST. Abdomen/Pelvis CT 02/10/18 12:23 IMPRESSION: Gastric distention. Ileus or partial small bowel obstruction. Small Bowel X-Ray 02/14/18 00:00 IMPRESSION: Rapid transition time. 1 hour post ingestion, contrast has already extended into the large bowel. No abnormal loops detected. KUB X-Ray 02/15/18 08:00 IMPRESSION: Allowing for mild gas and persistent contrast distension, no overt bowel obstruction. Most of the contrast has cleared the GI tract. Assessment & Plan - Diagnosis (1) Abdominal pain Qualifiers: Abdominal location: generalized Qualified Code(s): R10.84 - Generalized abdominal pain Is this a current diagnosis for this admission?: Yes Plan: Resolved (2) Dehydration Is this a current diagnosis for this admission?: Yes Plan: Resolved with hydration (3) Hyperglycemia Is this a current diagnosis for this admission?: Yes Plan: Continue insulin coverage A1c is 7.2 (4) Ileus Is this a current diagnosis for this admission?: Yes Plan: Colonoscopy was done 02/13/2018 and showed redundant very patulous colon and colonoscope could not be advanced past the hepatic flexure due to very tortuous colon (5) Traumatic brain injury Qualifiers: Encounter type: sequela Is this a current diagnosis for this admission?: Yes Plan: May need long-term care placement (6) Pseudo-obstruction of intestine Is this a current diagnosis for this admission?: Yes (7) Pseudo-obstruction of colon Is this a current diagnosis for this admission?: Yes Plan: Small bowel follow-through shows rapid transit time. Contrast was in the colon within 1 hour - Plan Summary Plan Summary: colon is redundant and very patulous on colonoscopy Stomach is very dilated and NG tube placed 02/05/2018 which the patient removed Small bowel follow-through shows rapid transit time, contrast was in the colon within 1 hour Follow-up KUB shows clearance of almost all the contrast Tolerated clear liquid diet, will advance to bland diet Follow-up on inflammatory and autoimmune serology Patient has dementia and traumatic brain injury, she may require long-term care placement
[2018-02-16] MEDS: ENOXAPARIN SODIUM INJ 40 MG/0.4 ML DISP.SYRIN SUBCUT SCH (09:26)
[2018-02-16] MEDS: BUSPIRONE HCL 10 MG TABLET PO SCH ×2 (09:26→21:18)
[2018-02-16] MEDS: DIVALPROEX SODIUM 250 MG TABLET.DR PO SCH ×2 (09:27→21:18)
[2018-02-16] MEDS: FAMOTIDINE INJ/PF 20 MG/2 ML SDV IV SCH ×2 (09:27→21:19)
[2018-02-16 11:38] LABS: ANTINUCLEAR ANTIBODIES Negative (Negative)
[2018-02-16 12:38] LABS: ANTICHROMATIN AB <0.2 AI (0.0-0.9); CENTROMERE B AB <0.2 AI (0.0-0.9); JO-1 ANTIBODY (ANACOMP) <0.2 AI (0.0-0.9); SJOGREN'S ANTI-SS-B AB <0.2 AI (0.0-0.9); SJOGREN'S SS-A ANTIBODY <0.2 AI (0.0-0.9)
[2018-02-16 14:01] LABS: DNA DOUBLE STRAND ANTIBODY ANA <1 IU/mL (0-9); SCLERODERMA-70 ANTIBODIES <0.2 AI (0.0-0.9)
[2018-02-16] MEDS ORDERED: ONDANSETRON HCL INJ/PF 4 MG/2 ML SDV IV PRN (15:00)
--- NOTE | 2018-02-16 15:28 | RADIOLOGY REPORT (SQ) ---
EXAM DESCRIPTION: KUB/ABDOMEN (SINGLE VIEW) COMPLETED DATE/TIME: 02/16/2018 3:15 pm REASON FOR STUDY: possible illeus COMPARISON: None. NUMBER OF VIEWS: One view. TECHNIQUE: Supine radiographic image of the abdomen acquired. LIMITATIONS: None. FINDINGS: BOWEL GAS PATTERN: Retained oral contrast in the right side of the colon and small amount in the left side of the colon from recent CT abdomen and pelvis examination. Mildly distended colon . CALCIFICATIONS: No suspicious calcifications. SOFT TISSUES: No gross mass or suggestion of organomegaly. HARDWARE: Prior cholecystectomy. Surgical metallic clips lower quadrants of the abdomen, more so on the right. BONES: Partially visualized orthopedic hardware in the left hip. No acute fracture. OTHER: No other significant finding. IMPRESSION: 1. Retained oral contrast in the colon, more so on the right from recent CT examination dated 02/10/2018. 2. Mild distended colon. No evidence of bowel obstruction. TECHNICAL DOCUMENTATION: JOB ID: [id number] [employer]- All Rights Reserved Reading location - IP/workstation name: [email or web address]
[2018-02-17 04:46] LABS: HEMATOCRIT 32.5 % (36.0-47.0); HEMOGLOBIN 11.7 g/dL (12.0-15.5); MEAN CORPUSCULAR HEMOGLOBIN 29.7 pg (27.0-33.4); MEAN CORPUSCULAR HGB CONC 36.1 g/dL (32.0-36.0); MEAN CORPUSCULAR VOLUME 82 fl (80-97); PLATELET COUNT 163 10^3/uL (150-450); RED BLOOD COUNT 3.95 10^6/uL (3.72-5.28); RED CELL DISTRIBUTION WIDTH 14.3 % (11.5-14.0); WHITE BLOOD COUNT 3.1 10^3/uL (4.0-10.5)
[2018-02-17 04:49] LABS: ALANINE AMINOTRANSFERASE 34 U/L (9-52); ALBUMIN 3.5 g/dL (3.5-5.0); ALKALINE PHOSPHATASE 102 U/L (38-126); ANION GAP 7 (5-19); ASPARTATE AMINO TRANSFERASE 22 U/L (14-36); BILIRUBIN,DIRECT 0.2 mg/dL (0.0-0.4); BILIRUBIN,TOTAL 0.4 mg/dL (0.2-1.3); BLOOD UREA NITROGEN 8 mg/dL (7-20); CALCIUM 9.1 mg/dL (8.4-10.2); CARBON DIOXIDE 33 mmol/L (22-30); CHLORIDE 102 mmol/L (98-107); GLUCOSE 153 mg/dL (75-110); POTASSIUM 4.3 mmol/L (3.6-5.0); SODIUM 142.2 mmol/L (137-145); TOTAL PROTEIN 6.3 g/dL (6.3-8.2)
[2018-02-17] MEDS: NORMAL SALINE 1000 ML 1,000 ML IV PRN (06:36)
[2018-02-17] MEDS: DIVALPROEX SODIUM 250 MG TABLET.DR PO SCH ×2 (09:47→21:54)
[2018-02-17] MEDS: FAMOTIDINE INJ/PF 20 MG/2 ML SDV IV SCH ×2 (09:47→21:53)
[2018-02-17] MEDS: ENOXAPARIN SODIUM INJ 40 MG/0.4 ML DISP.SYRIN SUBCUT SCH (09:47)
[2018-02-17] MEDS: BUSPIRONE HCL 10 MG TABLET PO SCH ×2 (09:47→21:54)
--- NOTE | 2018-02-17 11:54 | PDOC PROGRESS REPORT ---
Subjective Progress Note for:: 02/17/18 Subjective:: Reese Chavez is a 52-year-old female who presented to the emergency room with the initial complaints of hematuria and syncope. In the emergency room demonstrated an ileus to be present and the patient was noted to have a history of traumatic brain injury which moved to somewhat clouded the historical picture. She was subsequently treated for her ileus though she had no abdominal pain, nausea or vomiting. After several days she was advanced to a regular diabetic diet and she has tolerated that well. During her hospitalization is been noted that she has some moderate difficulties with her speech and is often apparently fidgety or bored and would certainly benefit from occupational therapy to provide her with some type of construct given productive output. Speech therapy may be appropriate in helping her to communicate more easily with other persons. 02/17/18: Reese is again feeling well today and has been enjoying a real diet with real food. She has been very active and ambulating around [place] the [place]. She is looking forward to going to rehab participate in occupational and speech therapy as these abilities for her future improvement have been discussed. Discharge planning is working on finding a rehab bed for this patient. Reason For Visit: ILEUS,DEHYDRATION,HYPERGLYCEMIA Physical Exam Vital Signs: Temp Pulse Resp BP Pulse Ox 98.1 F 72 16 123/74 100 02/17/18 07:34 02/17/18 07:34 02/17/18 07:34 02/17/18 07:34 02/17/18 07:34 Intake & Output 02/16/18 02/17/18 02/18/18 06:59 06:59 06:59 Intake Total 4344 3252 Balance 4344 3252 Weight 62.4 kg 62.1 kg General appearance: PRESENT: no acute distress, cooperative Head exam: PRESENT: atraumatic, normocephalic Eye exam: PRESENT: conjunctiva pink. ABSENT: conjunctival injection, nystagmus , scleral icterus Ear exam: PRESENT: normal external ear exam. ABSENT: bleeding, drainage Mouth exam: PRESENT: moist, tongue midline Teeth exam: PRESENT: edentulous. ABSENT: dental tenderness Neck exam: ABSENT: thyromegaly, tracheal deviation Respiratory exam: PRESENT: clear to auscultation jamee, symmetrical, unlabored Cardiovascular exam: PRESENT: RRR. ABSENT: clicks, diastolic murmur, gallop, rubs, systolic murmur Pulses: PRESENT: normal radial pulses Vascular exam: PRESENT: normal capillary refill. ABSENT: pallor GI/Abdominal exam: PRESENT: normal bowel sounds, soft Rectal exam: PRESENT: deferred Extremities exam: ABSENT: joint swelling, pedal edema Musculoskeletal exam: ABSENT: full ROM, normal inspection Neurological exam: PRESENT: alert, oriented to person, oriented to place, oriented to time Psychiatric exam: PRESENT: appropriate affect, normal mood Skin exam: ABSENT: jaundice, rash, urticaria Results Laboratory Results: 02/17/18 04:13 02/17/18 04:13 02/17/18 02/17/18 04:13 04:13 WBC 3.1 L RBC 3.95 Hgb 11.7 L Hct 32.5 L MCV 82 MCH 29.7 MCHC 36.1 H RDW 14.3 H Plt Count 163 Sodium 142.2 Potassium 4.3 Chloride 102 Carbon Dioxide 33 H Anion Gap 7 BUN 8 Creatinine 0.72 Est GFR ( Amer) > 60 Est GFR (Non-Af Amer) > 60 Glucose 153 H Calcium 9.1 Total Bilirubin 0.4 AST 22 ALT 34 Alkaline Phosphatase 102 Total Protein 6.3 Albumin 3.5 Impressions: Chest X-Ray 02/10/18 12:18 IMPRESSION: NO ACUTE RADIOGRAPHIC FINDING IN THE CHEST. Abdomen/Pelvis CT 02/10/18 12:23 IMPRESSION: Gastric distention. Ileus or partial small bowel obstruction. Small Bowel X-Ray 02/14/18 00:00 IMPRESSION: Rapid transition time. 1 hour post ingestion, contrast has already extended into the large bowel. No abnormal loops detected. KUB X-Ray 02/16/18 08:00 IMPRESSION: 1. Retained oral contrast in the colon, more so on the right from recent CT examination dated 02/10/2018. 2. Mild distended colon. No evidence of bowel obstruction. Assessment & Plan - Diagnosis (1) Ileus Is this a current diagnosis for this admission?: Yes Plan: Patient was found to have an ileus on a CT scan that was done at the time of her admission. Patient did not have abdominal pain, nausea, vomiting. She did admit to having 1 or 2 diarrhea stools per day and moderate dyspepsia. The CT scan was apparently done due to her claim of hematuria although her urinalysis was negative for blood. Though an ileus may have existed on the CT scan the patient did have bowel sounds the election was made to treat her with dietary restriction. She was gradually increased to a carb 3 diabetic diet which she has tolerated quite well. (2) Hyperglycemia Is this a current diagnosis for this admission?: Yes Plan: Patient was noted to be somewhat hyperglycemic on admission however her history of diabetes mellitus would account for her hyperglycemia. She has been well controlled with a carb 3 diabetic diet alone during the hospital course. (3) Elevated lactic acid level Is this a current diagnosis for this admission?: Yes Plan: Lactic acid level was 2.2 on admission and declined within a short time after receiving IV fluids. This problem is essentially resolved. - Time Time Spent with patient: 35 or more minutes Anticipated discharge: SNF Within: when bed available
[2018-02-17 16:51] LABS: HEMATOCRIT 35.5 % (36.0-47.0); HEMOGLOBIN 12.4 g/dL (12.0-15.5); MEAN CORPUSCULAR HEMOGLOBIN 29.4 pg (27.0-33.4); MEAN CORPUSCULAR HGB CONC 34.9 g/dL (32.0-36.0); MEAN CORPUSCULAR VOLUME 84 fl (80-97); PLATELET COUNT 183 10^3/uL (150-450); RED BLOOD COUNT 4.21 10^6/uL (3.72-5.28); RED CELL DISTRIBUTION WIDTH 14.6 % (11.5-14.0)
[2018-02-17] MEDS ORDERED: POTASSIUM CHLORIDE 10 MEQ CAPSULE.ER PO SCH (17:00)
[2018-02-17 17:11] LABS: ANION GAP 8 (5-19); BLOOD UREA NITROGEN 13 mg/dL (7-20); CALCIUM 9.6 mg/dL (8.4-10.2); CARBON DIOXIDE 34 mmol/L (22-30); CHLORIDE 97 mmol/L (98-107); GLUCOSE 126 mg/dL (75-110); POTASSIUM 4.3 mmol/L (3.6-5.0); SODIUM 138.8 mmol/L (137-145)
[2018-02-17] MEDS: INSULIN LISPRO 100 UNIT/ML 3 ML VIAL SUBCUT PRN (21:54)
[2018-02-18 06:39] LABS: ENDOMYSIAL ANTIBODY IGA Negative (Negative)
[2018-02-18 07:12] LABS: DEAMIDATED GLIADIN IGA AB 7 units (0-19); DEAMIDATED GLIADIN IGG AB 3 units (0-19); T-TRANSGLUTAMINASE (TTG) IGA <2 U/mL (0-3); T-TRANSGLUTAMINASE (TTG) IGG <2 U/mL (0-5)
[2018-02-18 07:14] LABS: CMV DNA PCR QUANT Negative (Negative)
[2018-02-18] MEDS: DIVALPROEX SODIUM 250 MG TABLET.DR PO SCH ×2 (09:10→21:26)
[2018-02-18] MEDS: FAMOTIDINE INJ/PF 20 MG/2 ML SDV IV SCH ×2 (09:10→21:26)
[2018-02-18] MEDS: BUSPIRONE HCL 10 MG TABLET PO SCH ×2 (09:10→21:26)
[2018-02-18] MEDS: ENOXAPARIN SODIUM INJ 40 MG/0.4 ML DISP.SYRIN SUBCUT SCH (09:10)
[2018-02-18 16:08] LABS: HEMATOCRIT 36.9 % (36.0-47.0); HEMOGLOBIN 12.8 g/dL (12.0-15.5); MEAN CORPUSCULAR HEMOGLOBIN 29.1 pg (27.0-33.4); MEAN CORPUSCULAR HGB CONC 34.5 g/dL (32.0-36.0); MEAN CORPUSCULAR VOLUME 84 fl (80-97); PLATELET COUNT 198 10^3/uL (150-450); RED BLOOD COUNT 4.39 10^6/uL (3.72-5.28); RED CELL DISTRIBUTION WIDTH 14.3 % (11.5-14.0); WHITE BLOOD COUNT 4.4 10^3/uL (4.0-10.5)
[2018-02-18 16:25] LABS: ANION GAP 8 (5-19); BLOOD UREA NITROGEN 21 mg/dL (7-20); CARBON DIOXIDE 36 mmol/L (22-30); CHLORIDE 93 mmol/L (98-107); GLUCOSE 132 mg/dL (75-110); POTASSIUM 4.6 mmol/L (3.6-5.0); SODIUM 137.4 mmol/L (137-145)
--- NOTE | 2018-02-18 17:21 | PDOC PROGRESS REPORT ---
Subjective Progress Note for:: 02/18/18 Subjective:: Reese Chavez is a 52-year-old female who presented to the emergency room with the initial complaints of hematuria and syncope. In the emergency room demonstrated an ileus to be present and the patient was noted to have a history of traumatic brain injury which moved to somewhat clouded the historical picture. She was subsequently treated for her ileus though she had no abdominal pain, nausea or vomiting. After several days she was advanced to a regular diabetic diet and she has tolerated that well. During her hospitalization is been noted that she has some moderate difficulties with her speech and is often apparently fidgety or bored and would certainly benefit from occupational therapy to provide her with some type of construct given productive output. Speech therapy may be appropriate in helping her to communicate more easily with other persons. 02/17/18: Reese is again feeling well today and has been enjoying a real diet with real food. She has been very active and ambulating around [place] the [place]. She is looking forward to going to rehab participate in occupational and speech therapy as these abilities for her future improvement have been discussed. Discharge planning is working on finding a rehab bed for this patient. 02/18/18: Patient is going to be discharged home today however she has no home to go to. Her home prior to coming in was at home a alf and that would be where she would be discharged back to a [place] homeless alf. Her electrical machine builder does not feel that she should be discharged there if she does not feel that she is competent to handle that environment. Her electrical machine builder as well as the psychiatrist and quantitative strategy analyst here in the hospital have recommended that she not be discharged at this time until a more appropriate placement can be arranged. Reason For Visit: ILEUS,DEHYDRATION,HYPERGLYCEMIA Physical Exam Vital Signs: Temp Pulse Resp BP Pulse Ox 99.0 F 82 17 90/65 L 98 02/18/18 17:03 02/18/18 17:03 02/18/18 17:03 02/18/18 17:03 02/18/18 17:03 Intake & Output 02/17/18 02/18/18 02/19/18 06:59 06:59 06:59 Intake Total 3252 2090 Output Total 3 Balance 3252 2087 Weight 62.1 kg 63.8 kg General appearance: PRESENT: no acute distress, cooperative Head exam: PRESENT: atraumatic, normocephalic Eye exam: PRESENT: conjunctiva pink, EOMI. ABSENT: conjunctival injection, nystagmus, periorbital swelling, scleral icterus Ear exam: PRESENT: normal external ear exam. ABSENT: bleeding, drainage Mouth exam: PRESENT: moist, tongue midline Neck exam: ABSENT: thyromegaly, tracheal deviation Respiratory exam: PRESENT: clear to auscultation jamee, symmetrical, unlabored Cardiovascular exam: PRESENT: RRR. ABSENT: clicks, gallop, rubs Vascular exam: PRESENT: normal capillary refill. ABSENT: pallor GI/Abdominal exam: PRESENT: normal bowel sounds, soft Rectal exam: PRESENT: deferred Extremities exam: ABSENT: joint swelling, pedal edema Musculoskeletal exam: PRESENT: full ROM, normal inspection Neurological exam: PRESENT: alert, oriented to person, oriented to place, oriented to time, CN II-XII grossly intact. ABSENT: oriented to situation, motor sensory deficit Psychiatric exam: PRESENT: normal mood, unusual affect - Childlike affect Skin exam: ABSENT: jaundice, rash, urticaria Results Laboratory Results: 02/18/18 15:57 02/18/18 15:57 02/17/18 02/18/18 02/18/18 16:34 15:57 15:57 WBC 4.4 RBC 4.39 Hgb 12.8 Hct 36.9 MCV 84 MCH 29.1 MCHC 34.5 RDW 14.3 H Plt Count 198 Sodium 138.8 137.4 Potassium 4.3 4.6 Chloride 97 L 93 L Carbon Dioxide 34 H 36 H Anion Gap 8 8 BUN 13 21 H Creatinine 1.14 1.04 Est GFR ( Amer) > 60 > 60 Est GFR (Non-Af Amer) 50 L 56 L Glucose 126 H 132 H Calcium 9.6 10.0 Magnesium 1.6 1.7 Impressions: Chest X-Ray 02/10/18 12:18 IMPRESSION: NO ACUTE RADIOGRAPHIC FINDING IN THE CHEST. Abdomen/Pelvis CT 02/10/18 12:23 IMPRESSION: Gastric distention. Ileus or partial small bowel obstruction. Small Bowel X-Ray 02/14/18 00:00 IMPRESSION: Rapid transition time. 1 hour post ingestion, contrast has already extended into the large bowel. No abnormal loops detected. KUB X-Ray 02/16/18 08:00 IMPRESSION: 1. Retained oral contrast in the colon, more so on the right from recent CT examination dated 02/10/2018. 2. Mild distended colon. No evidence of bowel obstruction. Assessment & Plan - Diagnosis (1) Ileus Is this a current diagnosis for this admission?: Yes Plan: Patient was found to have an ileus on a CT scan that was done at the time of her admission. Patient did not have new abdominal pain, nausea or vomiting. She did admit to having 1 or 2 diarrhea stools per day and moderate dyspepsia. The CT scan was apparently done due to her claim of hematuria although her urinalysis was negative for blood. Though an ileus may have existed on the CT scan the patient did have bowel sounds the election was made to treat her with dietary restriction. She was gradually increased to a carb 3 diabetic diet which she has tolerated quite well. (2) Hyperglycemia Is this a current diagnosis for this admission?: Yes Plan: Patient was noted to be somewhat hyperglycemic on admission however her history of diabetes mellitus would account for her hyperglycemia. She has been well controlled with a carb 3 diabetic diet alone during the hospital course. (3) Elevated lactic acid level Is this a current diagnosis for this admission?: Yes Plan: Lactic acid level was 2.2 on admission and declined within a short time after receiving IV fluids. This problem is essentially resolved. - Time Time Spent with patient: 25-34 minutes Within: when bed available
[2018-02-18] MEDS: INSULIN LISPRO 100 UNIT/ML 3 ML VIAL SUBCUT PRN (21:42)
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
[2018-02-19] MEDS: FAMOTIDINE INJ/PF 20 MG/2 ML SDV IV SCH (09:57)
[2018-02-19] MEDS: BUSPIRONE HCL 10 MG TABLET PO SCH ×2 (09:57→21:45)
[2018-02-19] MEDS: ENOXAPARIN SODIUM INJ 40 MG/0.4 ML DISP.SYRIN SUBCUT SCH (09:58)
[2018-02-19] MEDS: DIVALPROEX SODIUM 250 MG TABLET.DR PO SCH ×2 (09:58→21:45)
[2018-02-19] MEDS ORDERED: BISMUTH SUBSALICYLATE 262 MG TAB.CHEW PO PRN (12:57)
--- NOTE | 2018-02-19 13:37 | PDOC PROGRESS REPORT ---
Subjective Progress Note for:: 02/19/18 Subjective:: Reese Chavez is a 52-year-old female who presented to the emergency room with the initial complaints of hematuria and syncope. In the emergency room demonstrated an ileus to be present and the patient was noted to have a history of traumatic brain injury which moved to somewhat clouded the historical picture. She was subsequently treated for her ileus though she had no abdominal pain, nausea or vomiting. After several days she was advanced to a regular diabetic diet and she has tolerated that well. During her hospitalization is been noted that she has some moderate difficulties with her speech and is often apparently fidgety or bored and would certainly benefit from occupational therapy to provide her with some type of construct given productive output. Speech therapy may be appropriate in helping her to communicate more easily with other persons. 02/17/18: Reese is again feeling well today and has been enjoying a real diet with real food. She has been very active and ambulating around [place] the [place]. She is looking forward to going to rehab participate in occupational and speech therapy as these abilities for her future improvement have been discussed. Discharge planning is working on finding a rehab bed for this patient. 02/18/18: Patient is going to be discharged home today however she has no home to go to. Her home prior to coming in was [facility] home [facility] and that would be where she would be discharged back to a [place] [facility]. Her accounts payable technician does not feel that she should be discharged there if she does not feel that she is competent to handle that environment. Her accounts payable technician as well as the psychiatrist and professional programmer analyst here in the hospital have recommended that she not be discharged at this time until a more appropriate placement can be arranged. 02/19/18: Reese is doing well today, watching television when I entered her room. States she has been feeling well but has complained of a little bit of dyspepsia and would like to have some Pepto-Bismol for that if possible. I have discussed the reason why she was not discharged yesterday with her and she does understand but tells me that she has been able to take care of herself in homeless shelters for quite some time as that is where she has been living for the past several years. Further arrangements will be made for her appropriate disposition and once made she will be discharged. She agrees to this plan and states that she has been feeling quite well and enjoys her meals as well as her ability to watch TV, look at the newspaper and talk to her sitter. Reason For Visit: ILEUS,DEHYDRATION,HYPERGLYCEMIA Physical Exam Vital Signs: Temp Pulse Resp BP Pulse Ox 98.2 F 68 16 112/72 100 02/19/18 12:00 02/19/18 12:00 02/19/18 12:00 02/19/18 12:00 02/19/18 12:00 Intake & Output 02/18/18 02/19/18 02/20/18 06:59 06:59 06:59 Intake Total 2089 1030 Output Total 3 Balance 2086 1030 Weight 63.8 kg 64.8 kg General appearance: PRESENT: no acute distress, cooperative Head exam: PRESENT: atraumatic, normocephalic Eye exam: ABSENT: conjunctival injection, scleral icterus Ear exam: PRESENT: normal external ear exam. ABSENT: drainage Mouth exam: PRESENT: moist, tongue midline Neck exam: ABSENT: thyromegaly, tracheal deviation Respiratory exam: PRESENT: clear to auscultation jamee, symmetrical, unlabored Cardiovascular exam: PRESENT: RRR. ABSENT: clicks, gallop, rubs Vascular exam: PRESENT: normal capillary refill. ABSENT: pallor GI/Abdominal exam: PRESENT: normal bowel sounds, soft Rectal exam: PRESENT: deferred Extremities exam: ABSENT: joint swelling, pedal edema Musculoskeletal exam: PRESENT: full ROM, normal inspection Neurological exam: PRESENT: alert, oriented to person, oriented to place, oriented to time, oriented to situation - Her orientation to situation is for basic situations only complex situations or those cases requiring extensive insight and evaluation are beyond her level of mental function., CN II-XII grossly intact. ABSENT: motor sensory deficit Psychiatric exam: PRESENT: appropriate affect, normal mood Skin exam: ABSENT: jaundice, rash, urticaria Results Laboratory Results: 02/18/18 15:57 02/18/18 15:57 02/18/18 02/18/18 15:57 15:57 WBC 4.4 RBC 4.39 Hgb 12.8 Hct 36.9 MCV 84 MCH 29.1 MCHC 34.5 RDW 14.3 H Plt Count 198 Sodium 137.4 Potassium 4.6 Chloride 93 L Carbon Dioxide 36 H Anion Gap 8 BUN 21 H Creatinine 1.04 Est GFR ( Amer) > 60 Est GFR (Non-Af Amer) 56 L Glucose 132 H Calcium 10.0 Magnesium 1.7 Impressions: Chest X-Ray 02/10/18 12:18 IMPRESSION: NO ACUTE RADIOGRAPHIC FINDING IN THE CHEST. Abdomen/Pelvis CT 02/10/18 12:23 IMPRESSION: Gastric distention. Ileus or partial small bowel obstruction. Small Bowel X-Ray 02/14/18 00:00 IMPRESSION: Rapid transition time. 1 hour post ingestion, contrast has already extended into the large bowel. No abnormal loops detected. KUB X-Ray 02/16/18 08:00 IMPRESSION: 1. Retained oral contrast in the colon, more so on the right from recent CT examination dated 02/10/2018. 2. Mild distended colon. No evidence of bowel obstruction. Assessment & Plan - Diagnosis (1) Ileus Is this a current diagnosis for this admission?: Yes Plan: Patient was found to have an ileus on a CT scan that was done at the time of her admission. Patient did not have new abdominal pain, nausea or vomiting. She did admit to having 1 or 2 diarrhea stools per day and moderate dyspepsia. The CT scan was apparently done due to her claim of hematuria although her urinalysis was negative for blood. Though an ileus may have existed on the CT scan the patient did have bowel sounds the election was made to treat her with dietary restriction. She was gradually increased to a carb 3 diabetic diet which she has tolerated quite well. She has complained of intermittent dyspepsia treated as needed with Pepto-Bismol. (2) Hyperglycemia Is this a current diagnosis for this admission?: Yes Plan: Patient was noted to be somewhat hyperglycemic on admission however her history of diabetes mellitus would account for her hyperglycemia. She has been well controlled with a carb 3 diabetic diet alone during the hospital course. (3) Elevated lactic acid level Is this a current diagnosis for this admission?: Yes Plan: Lactic acid level was 2.2 on admission and declined within a short time after receiving IV fluids. This problem is essentially resolved. - Time Time Spent with patient: 15-24 minutes Within: when bed available
[2018-02-19 16:06] LABS: HEMATOCRIT 37.6 % (36.0-47.0); HEMOGLOBIN 13.1 g/dL (12.0-15.5); MEAN CORPUSCULAR HEMOGLOBIN 29.4 pg (27.0-33.4); MEAN CORPUSCULAR HGB CONC 34.9 g/dL (32.0-36.0); MEAN CORPUSCULAR VOLUME 84 fl (80-97); PLATELET COUNT 207 10^3/uL (150-450); RED BLOOD COUNT 4.45 10^6/uL (3.72-5.28); RED CELL DISTRIBUTION WIDTH 14.4 % (11.5-14.0); WHITE BLOOD COUNT 4.8 10^3/uL (4.0-10.5)
[2018-02-19 16:28] LABS: ANION GAP 11 (5-19); BLOOD UREA NITROGEN 26 mg/dL (7-20); CALCIUM 9.8 mg/dL (8.4-10.2); CARBON DIOXIDE 32 mmol/L (22-30); CHLORIDE 94 mmol/L (98-107); GLUCOSE 103 mg/dL (75-110); POTASSIUM 4.8 mmol/L (3.6-5.0); SODIUM 137.4 mmol/L (137-145)
[2018-02-19] MEDS: FAMOTIDINE 20 MG TABLET PO SCH (21:45)
[2018-02-19] MEDS: INSULIN LISPRO 100 UNIT/ML 3 ML VIAL SUBCUT PRN (21:45)
[2018-02-20] MEDS: FAMOTIDINE 20 MG TABLET PO SCH (10:11)
[2018-02-20] MEDS: DIVALPROEX SODIUM 250 MG TABLET.DR PO SCH (10:11)
[2018-02-20] MEDS: BUSPIRONE HCL 10 MG TABLET PO SCH (10:11)
[2018-02-20] MEDS: ENOXAPARIN SODIUM INJ 40 MG/0.4 ML DISP.SYRIN SUBCUT SCH (10:13)
--- NOTE | 2018-02-20 10:33 | PDOC DISCHARGE SUMMARY ---
General - Admit/Disc Date/PCP Admission Date/Primary Care Provider: 02/13/18 14:24 Discharge Date: 02/20/18 - Discharge Diagnosis (1) Ileus Is this a current diagnosis for this admission?: Yes Summary: Patient was found to have an ileus on a CT scan that was done at the time of her admission. Patient did not have new abdominal pain (she has had a history of chronic intermittent left flank pain of uncertain etiology), nausea or vomiting. She did admit to having 1 or 2 diarrhea stools per day and moderate dyspepsia. The CT scan was apparently done due to her claim of hematuria although her urinalysis was negative for blood. Though an ileus may have existed on the CT scan the patient did have bowel sounds the election was made to treat her with dietary restriction. She was gradually increased to a carb 3 diabetic diet which she has tolerated quite well. She has complained of intermittent dyspepsia treated as needed with Pepto-Bismol. (2) Hyperglycemia Is this a current diagnosis for this admission?: Yes Summary: Patient was noted to be somewhat hyperglycemic on admission however her history of diabetes mellitus would account for her hyperglycemia. She has been well controlled with a carb 3 diabetic diet without medications during the hospital course. (3) Elevated lactic acid level Is this a current diagnosis for this admission?: Yes Summary: Lactic acid level was 2.2 on admission and declined within a short time after receiving IV fluids. This problem is essentially resolved. (4) Hypokalemia Is this a current diagnosis for this admission?: Yes Summary: Patient was initially found to have hypokalemia which was treated with IV replenishment/supplementation. Her potassium level returned to normal and has remained normal through the remainder of her hospital course without additional treatment. - Additional Information Resuscitation Status: Full Code Discharge Diet: As Tolerated, Diabetic Discharge Activity: Activity As Tolerated, Walk Frequently Prescriptions: Buspirone HCl [Buspar 10 mg Tablet] 10 mg PO BIDBS 30 Days #60 tablet Home Medications: Buspirone HCl [Buspar 10 mg Tablet] 10 mg PO BIDBS 30 Days #60 tablet 02/18/18 Bismuth Subsalicylate [Pepto-Bismol 262 Chewable Tablet] 524 mg PO Q4HP PRN tab.chew 02/20/18 History of Present Illness History of Present Illness: Reese Chavez is a 52-year-old female who presented to the emergency room with the initial complaints of hematuria and syncope. In the emergency room demonstrated an ileus to be present and the patient was noted to have a history of traumatic brain injury which moved to somewhat clouded the historical picture. She was subsequently treated for her ileus though she had no abdominal pain, nausea or vomiting. Hospital Course Hospital Course: After several days she was advanced to a regular diabetic diet and she has tolerated that well. During her hospitalization is been noted that she has some moderate difficulties with her speech and is often apparently fidgety or bored and would certainly benefit from occupational therapy to provide her with some type of construct given productive output. Speech therapy may be appropriate in helping her to communicate more easily with other persons. 02/17/18: Reese is again feeling well today and has been enjoying a real diet with real food. She has been very active and ambulating around [place] the [place]. She is looking forward to going to rehab participate in occupational and speech therapy as these abilities for her future improvement have been discussed. Discharge planning is working on finding a rehab bed for this patient. 02/18/18: Patient is going to be discharged home today however she has no home to go to. Her home prior to coming in was at home a fdc and that would be where she would be discharged back to a [place] homeless [facility]. Her small engine mechanic does not feel that she should be discharged there if she does not feel that she is competent to handle that environment. Her small engine mechanic as well as the psychiatrist and pipe organ technician here in the hospital have recommended that she not be discharged at this time until a more appropriate placement can be arranged. 02/19/18: Reese is doing well today, watching television when I entered her room. States she has been feeling well but has complained of a little bit of dyspepsia and would like to have some Pepto-Bismol for that if possible. I have discussed the reason why she was not discharged yesterday with her and she does understand but tells me that she has been able to take care of herself in homeless shelters for quite some time as that is where she has been living for the past several years. Further arrangements will be made for her appropriate disposition and once made she will be discharged. She agrees to this plan and states that she has been feeling quite well and enjoys her meals as well as her ability to watch TV, look at the newspaper and talk to her sitter. 02/20/18: Reese is again doing well today and is ready to go to her new living environment as soon as she has been accepted. She says she is going to miss the people that she is met here. He offers no new complaints and her examination is unchanged from yesterday's exam. She will be discharged today in improved and stable condition as a bed has been [facility] her in a [facility] and [place]. Physical Exam Vital Signs: Temp Pulse Resp BP Pulse Ox 97.4 F 62 16 103/75 100 02/20/18 08:00 02/20/18 08:00 02/20/18 08:00 02/20/18 08:00 02/20/18 08:00 Intake & Output 02/18/18 02/19/18 02/20/18 23:59 23:59 23:59 Intake Total 1710 2231 Balance 1710 2231 Weight 63.8 kg 64.8 kg 64.8 kg General appearance: PRESENT: no acute distress, cooperative Head exam: PRESENT: atraumatic, normocephalic Eye exam: ABSENT: conjunctival injection, scleral icterus Ear exam: PRESENT: normal external ear exam. ABSENT: drainage Mouth exam: PRESENT: moist, tongue midline Teeth exam: PRESENT: edentulous Neck exam: ABSENT: thyromegaly, tracheal deviation Respiratory exam: PRESENT: clear to auscultation jamee, symmetrical, unlabored Cardiovascular exam: PRESENT: RRR. ABSENT: clicks, diastolic murmur, gallop, rubs, systolic murmur Vascular exam: PRESENT: normal capillary refill. ABSENT: pallor GI/Abdominal exam: PRESENT: normal bowel sounds, soft Rectal exam: PRESENT: deferred Extremities exam: ABSENT: joint swelling, pedal edema Musculoskeletal exam: PRESENT: full ROM, normal inspection Neurological exam: PRESENT: alert, oriented to person, oriented to place, oriented to time, CN II-XII grossly intact. ABSENT: motor sensory deficit Psychiatric exam: PRESENT: appropriate affect, normal mood Skin exam: ABSENT: jaundice, rash, urticaria Results Laboratory Results: 02/19/18 15:56 02/19/18 15:56 02/19/18 02/19/18 15:56 15:56 WBC 4.8 RBC 4.45 Hgb 13.1 Hct 37.6 MCV 84 MCH 29.4 MCHC 34.9 RDW 14.4 H Plt Count 207 Sodium 137.4 Potassium 4.8 Chloride 94 L Carbon Dioxide 32 H Anion Gap 11 BUN 26 H Creatinine 0.98 Est GFR ( Amer) > 60 Est GFR (Non-Af Amer) > 60 Glucose 103 Calcium 9.8 Magnesium 2.0 Impressions: Chest X-Ray 02/10/18 12:18 IMPRESSION: NO ACUTE RADIOGRAPHIC FINDING IN THE CHEST. Abdomen/Pelvis CT 02/10/18 12:23 IMPRESSION: Gastric distention. Ileus or partial small bowel obstruction. Small Bowel X-Ray 02/14/18 00:00 IMPRESSION: Rapid transition time. 1 hour post ingestion, contrast has already extended into the large bowel. No abnormal loops detected. KUB X-Ray 02/16/18 08:00 IMPRESSION: 1. Retained oral contrast in the colon, more so on the right from recent CT examination dated 02/10/2018. 2. Mild distended colon. No evidence of bowel obstruction. Qualifiers - * PATIENT BEING DISCHARGED WITH ANY OF THE FOLLOWING DIAGNOSIS: No Plan Discharge Plan: Discharge to assisted living in improved and stable condition Time Spent: Greater than 30 Minutes
--- NOTE | 2018-02-20 10:41 | PDOC TRANSFER SUMMARY ---
General - Admit/Disc Date/PCP Admission Date/Primary Care Provider: 02/13/18 14:24 Discharge Date: 02/20/18 - Discharge Diagnosis (1) Ileus Is this a current diagnosis for this admission?: Yes Summary: Patient was found to have an ileus on a CT scan that was done at the time of her admission. Patient did not have new abdominal pain (she has had a history of chronic intermittent left flank pain of uncertain etiology), nausea or vomiting. She did admit to having 1 or 2 diarrhea stools per day and moderate dyspepsia. The CT scan was apparently done due to her claim of hematuria although her urinalysis was negative for blood. Though an ileus may have existed on the CT scan the patient did have bowel sounds the election was made to treat her with dietary restriction. She was gradually increased to a carb 3 diabetic diet which she has tolerated quite well. She has complained of intermittent dyspepsia treated as needed with Pepto-Bismol. (2) Hyperglycemia Is this a current diagnosis for this admission?: Yes Summary: Patient was noted to be somewhat hyperglycemic on admission however her history of diabetes mellitus would account for her hyperglycemia. She has been well controlled with a carb 3 diabetic diet without medications during the hospital course. (3) Elevated lactic acid level Is this a current diagnosis for this admission?: Yes Summary: Lactic acid level was 2.2 on admission and declined within a short time after receiving IV fluids. This problem is essentially resolved. (4) Hypokalemia Is this a current diagnosis for this admission?: Yes Summary: Patient was initially found to have hypokalemia which was treated with IV replenishment/supplementation. Her potassium level returned to normal and has remained normal through the remainder of her hospital course without additional treatment. - Additional Information Resuscitation Status: Full Code Discharge Diet: As Tolerated, Diabetic Discharge Activity: Activity As Tolerated, Walk Frequently Prescriptions: Buspirone HCl [Buspar 10 mg Tablet] 10 mg PO BIDBS 30 Days #60 tablet Home Medications: Buspirone HCl [Buspar 10 mg Tablet] 10 mg PO BIDBS 30 Days #60 tablet 02/18/18 Bismuth Subsalicylate [Pepto-Bismol 262 Chewable Tablet] 524 mg PO Q4HP PRN tab.chew 02/20/18 History of Present Illness Admission Date/PCP: 02/13/18 14:24 Patient complains of: Hematuria and syncope History of Present Illness: Reese Chavez is a 52-year-old female who presented to the emergency room with the initial complaints of hematuria and syncope. In the emergency room demonstrated an ileus to be present and the patient was noted to have a history of traumatic brain injury which moved to somewhat clouded the historical picture. She was subsequently treated for her ileus though she had no abdominal pain, nausea or vomiting. Hospital Course Hospital Course: After several days she was advanced to a regular diabetic diet and she has tolerated that well. During her hospitalization is been noted that she has some moderate difficulties with her speech and is often apparently fidgety or bored and would certainly benefit from occupational therapy to provide her with some type of construct given productive output. Speech therapy may be appropriate in helping her to communicate more easily with other persons. 02/17/18: Reese is again feeling well today and has been enjoying a real diet with real food. She has been very active and [place]. She is looking forward to going to rehab participate in occupational and speech therapy as these abilities for her future improvement have been discussed. Discharge planning is working on finding a rehab bed for this patient. 02/18/18: Patient is going to be discharged home today however she has no home to go to. Her home prior to coming in was at home a retirement and that would be where she would be discharged back to a [place] homeless retirement. Her environmental services specialist does not feel that she should be discharged there if she does not feel that she is competent to handle that environment. Her environmental services specialist as well as the psychiatrist and vp human resources here in the hospital have recommended that she not be discharged at this time until a more appropriate placement can be arranged. 02/19/18: Reese is doing well today, watching television when I entered her room. States she has been feeling well but has complained of a little bit of dyspepsia and would like to have some Pepto-Bismol for that if possible. I have discussed the reason why she was not discharged yesterday with her and she does understand but tells me that she has been able to take care of herself in homeless shelters for quite some time as that is where she has been living for the past several years. Further arrangements will be made for her appropriate disposition and once made she will be discharged. She agrees to this plan and states that she has been feeling quite well and enjoys her meals as well as her ability to watch TV, look at the newspaper and talk to her sitter. 02/20/18: Reese is again doing well today and is ready to go to her new living environment as soon as she has been accepted. She says she is going to miss the people that she is met here. He offers no new complaints and her examination is unchanged from yesterday's exam. She will be discharged today in improved and stable condition as a bed has been located for her in a [facility] facility and [place]. Physical Exam Vital Signs: Temp Pulse Resp BP Pulse Ox 97.4 F 62 16 103/75 100 02/20/18 08:00 02/20/18 08:00 02/20/18 08:00 02/20/18 08:00 02/20/18 08:00 Intake & Output 02/18/18 02/19/18 02/20/18 23:59 23:59 23:59 Intake Total 1710 2231 Balance 1710 2231 Weight 63.8 kg 64.8 kg 64.8 kg Additional comments: General appearance: PRESENT: no acute distress, cooperative Head exam: PRESENT: atraumatic, normocephalic Eye exam: ABSENT: conjunctival injection, scleral icterus Ear exam: PRESENT: normal external ear exam. ABSENT: drainage Mouth exam: PRESENT: moist, tongue midline Teeth exam: PRESENT: edentulous Neck exam: ABSENT: thyromegaly, tracheal deviation Respiratory exam: PRESENT: clear to auscultation jamee, symmetrical, unlabored Cardiovascular exam: PRESENT: RRR. ABSENT: clicks, diastolic murmur, gallop, rubs, systolic murmur Vascular exam: PRESENT: normal capillary refill. ABSENT: pallor GI/Abdominal exam: PRESENT: normal bowel sounds, soft Rectal exam: PRESENT: deferred Extremities exam: ABSENT: joint swelling, pedal edema Musculoskeletal exam: PRESENT: full ROM, normal inspection Neurological exam: PRESENT: alert, oriented to person, oriented to place, oriented to time, CN II-XII grossly intact. ABSENT: motor sensory deficit Psychiatric exam: PRESENT: appropriate affect, normal mood Skin exam: ABSENT: jaundice, rash, urticaria Results Laboratory Results: 02/19/18 15:56 02/19/18 15:56 02/19/18 02/19/18 15:56 15:56 WBC 4.8 RBC 4.45 Hgb 13.1 Hct 37.6 MCV 84 MCH 29.4 MCHC 34.9 RDW 14.4 H Plt Count 207 Sodium 137.4 Potassium 4.8 Chloride 94 L Carbon Dioxide 32 H Anion Gap 11 BUN 26 H Creatinine 0.98 Est GFR ( Amer) > 60 Est GFR (Non-Af Amer) > 60 Glucose 103 Calcium 9.8 Magnesium 2.0 Impressions: Chest X-Ray 02/10/18 12:18 IMPRESSION: NO ACUTE RADIOGRAPHIC FINDING IN THE CHEST. Abdomen/Pelvis CT 02/10/18 12:23 IMPRESSION: Gastric distention. Ileus or partial small bowel obstruction. Small Bowel X-Ray 02/14/18 00:00 IMPRESSION: Rapid transition time. 1 hour post ingestion, contrast has already extended into the large bowel. No abnormal loops detected. KUB X-Ray 02/16/18 08:00 IMPRESSION: 1. Retained oral contrast in the colon, more so on the right from recent CT examination dated 02/10/2018. 2. Mild distended colon. No evidence of bowel obstruction. Qualifiers - * PATIENT BEING DISCHARGED WITH ANY OF THE FOLLOWING DIAGNOSIS: No Plan Discharge Plan: [facility]charge to a [facility] and [facility] in improved and stable condition. Time Spent: Greater than 30 Minutes
[2018-02-20 13:33] VITALS: BP 124/69
== END 2018-02-20 13:40 | disposition short-term general hospital (02) | DRG 390 ==
LOC: ER 12:05 → EH 16:03 → 5 21:06 → OBSVTOIN 02-13 14:24
PROVIDERS: ADMIT Internal Medicine; ATTEND Internal Medicine
PROC: 0DJD8ZZ Inspection of Lower Intestinal Tract, Via Natural or Artificial Opening Endoscopic (ICD-10-PCS; 2018-02-13)
PROC: 0D9670Z Drainage of Stomach with Drainage Device, Via Natural or Artificial Opening (ICD-10-PCS; principal; 2018-02-13 13:30)
PROC: 3E02340 Introduction of Influenza Vaccine into Muscle, Percutaneous Approach (ICD-10-PCS; 2018-02-20)
DX: K56.7 Ileus, unspecified (principal); E86.0 Dehydration; E11.65 Type 2 diabetes mellitus with hyperglycemia; R74.0 Nonspecific elevation of levels of transaminase and lactic acid dehydrogenase [LDH]; E87.6 Hypokalemia; K59.09 Other constipation; R31.9 Hematuria, unspecified; M19.90 Unspecified osteoarthritis, unspecified site; R00.0 Tachycardia, unspecified; F03.90 Unspecified dementia, unspecified severity, without behavioral disturbance, psychotic disturbance, mood disturbance, and anxiety; Z59.0 Homelessness; Z87.820 Personal history of traumatic brain injury; Z23 Encounter for immunization; Z85.42 Personal history of malignant neoplasm of other parts of uterus; Z90.710 Acquired absence of both cervix and uterus; Z82.49 Family history of ischemic heart disease and other diseases of the circulatory system; Z82.3 Family history of stroke; Z83.3 Family history of diabetes mellitus; Z80.9 Family history of malignant neoplasm, unspecified; Z88.6 Allergy status to analgesic agent; Z88.0 Allergy status to penicillin; Z88.8 Allergy status to other drugs, medicaments and biological substances
CPT/HCPCS: 36415; 45378; 71045; 74018; 74176; 74177; 74250; 80048; 80053; 81001; 82607; 82746; 82803; 82962; 83036; 83520; 83605; 83735; 84443; 84484; 85025; 85027; 85652; 86038; 86140; 86225; 86235; 86695; 86701; 87040; 87496; 90471; 90686; 93005; 93010; 96361; 96374; 99285; G0008; G0378; J0171; J1200; J1610; J1630; J1650; J1815; J1885; J2250; J2310; J2405; J3010; J3490; S0028